=== PATIENT | male | born 1955 | race Caucasian/White ===

== ENCOUNTER → 2021-05-24 | Outpatient (REF) | payer BC ==
[2021-05-24 12:59] LABS: BACTERIA, URINE AUTO 1+ (NEGATIVE); MUCUS, URINE SMALL (NEGATIVE); RBC, URINE AUTO 39 /HPF (0-3); RENAL EPITHELIAL CELLS 1 /HPF; SQUAMOUS EPITHELIAL CELL UR AU 0 /HPF (0-6); WBC, URINE AUTO 13 /HPF (0-3)
== END ==
LOC: M LAB REF 12:25
PROVIDERS: ATTEND Internal Medicine
DX: R31.9 Hematuria, unspecified (principal)

== ENCOUNTER → 2021-06-14 | Outpatient (REF) | payer BC ==
[2021-06-14 13:01] LABS: BACTERIA, URINE AUTO NEGATIVE (NEGATIVE); MUCUS, URINE SMALL (NEGATIVE); RBC, URINE AUTO 119 /HPF (0-3); SQUAMOUS EPITHELIAL CELL UR AU 0 /HPF (0-6); WBC, URINE AUTO 18 /HPF (0-3)
== END ==
LOC: M LAB REF 12:26
PROVIDERS: ATTEND Internal Medicine
DX: R31.9 Hematuria, unspecified (principal); R30.0 Dysuria

== ENCOUNTER → 2021-06-21 | Outpatient (CLI) | payer OTHER ==
[~2021-06-21] MED LIST: ISOVUE-370 76% 100ML VIAL As Ordered ONE
== END ==
LOC: M RAD 14:01
PROVIDERS: ATTEND Internal Medicine
DX: R31.9 Hematuria, unspecified (principal)

== ENCOUNTER → 2021-06-25 | Outpatient (CLI) | payer OTHER, MEDICARE | LOC: M PLALAB 10:49 | PROVIDERS: ATTEND Nurse Practitioner Women's Health | DX: C61 Malignant neoplasm of prostate (principal) ==

== ENCOUNTER → 2021-07-17 | Outpatient (CLI) | payer OTHER | LOC: M RAD 10:42 | PROVIDERS: ATTEND Internal Medicine | DX: Z87.891 Personal history of nicotine dependence (principal) ==

== ENCOUNTER → 2021-08-13 | Outpatient (REF) | payer OTHER ==
[~2021-08-13] MED LIST changes: +ATOR1TAB19; +CITA20TA7; +GINK1CAP PO; -ISOVUE-370 76% 100ML VIAL As Ordered ONE; +LISI10TA22; +MULTTAB77 PO; +TADA5TAB; +TAMS1CAP17
[2021-08-13 17:10] LABS: INR 1.11; PROTHROMBIN TIME 14.7 SECONDS (12.7-14.5)
== END ==
LOC: M LAB REF 16:40
PROVIDERS: ATTEND Internal Medicine
DX: Z01.810 Encounter for preprocedural cardiovascular examination (principal)

== ENCOUNTER → 2021-08-14 | Outpatient (CLI) | payer MEDICARE, OTHER, SELFPAY | LOC: M LABSMTC 09:59 | PROVIDERS: ATTEND Anesthesiology | DX: Z01.812 Encounter for preprocedural laboratory examination (principal) ==

== ENCOUNTER 2021-08-19 11:10 | Day surgery (SDC) | payer OTHER, SELFPAY ==
[~2021-08-19] VITALS: Ht 175.3 cm; Wt 77.0 kg
[~2021-08-19 11:10] MED LIST changes: +CIPROFLOXACIN 400 MG in IV 1 EA IV ONE
[2021-08-19] MEDS ORDERED: LR 1,000 ML IV SCH ×2 (11:20→14:40)
[2021-08-19] MEDS ORDERED: fentaNYL 100 MCG/2 ML INJECTION As Ordered ONE ×2 (12:39→13:40)
[2021-08-19] MEDS ORDERED: MIDAZOLAM INJ 2MG/2ML VIAL (J2250 PER 1MG) As Ordered ONE (12:59)
[2021-08-19] MEDS ORDERED: propofoL 200 MG/20 ML VIAL As Ordered ONE (13:00)
[2021-08-19] MEDS ORDERED: ROCURONIUM BROMIDE 50 MG/5 ML VIAL As Ordered ONE (13:00)
[2021-08-19] MEDS ORDERED: ONDANSETRON 4MG 2ML VIAL As Ordered ONE ×2 (13:37→13:41)
[2021-08-19] MEDS ORDERED: SUGAMMADEX SODIUM 500 MG/5 ML VIAL (BRIDION) As Ordered ONE (13:37)
[2021-08-19] MEDS ORDERED: dexameTHASONE 4 MG/ML 1ML VIAL (J1100 PER 1MG) As Ordered ONE ×2 (13:37→13:51)
[2021-08-19] MEDS ORDERED: ACETAMINOPHEN 1000MG 100ML IV BTL (OFIRMEV) (J0131 PER 10MG) As Ordered ONE (13:40)
[2021-08-19] MEDS ORDERED: ePHEDrine SULFATE 25 MG/5 ML(5MG/ML) SYRINGE As Ordered ONE (14:02)
[2021-08-19] MEDS ORDERED: PHENYLephrine 500MCG 5ML (100MCG/ML) SYRINGE As Ordered ONE (14:07)
[2021-08-19] MEDS ORDERED: KETOROLAC 60MG 2ML VIAL As Ordered ONE (14:14)
[2021-08-19] MEDS ORDERED: HYDR-3713 PO (14:22)
[2021-08-19] MEDS ORDERED: PYRI1TAB5 PO (14:22)
[2021-08-19] MEDS ORDERED: OXYB5TAB10 PO (14:22)
[2021-08-19] MEDS ORDERED: BACT800T5 PO (14:22)
[2021-08-19] MEDS ORDERED: fentaNYL 100 MCG/2 ML INJECTION IV PRN (14:40)
[2021-08-19] MEDS ORDERED: PERCOCET 5MG/325MG TAB PO PRN (14:40)
[2021-08-19] MEDS ORDERED: ONDANSETRON 4MG 2ML VIAL IV PRN (14:40)
[2021-08-19] MEDS: LABETALOL 100MG/20ML VIAL IV PRN ×3 (14:50→15:00)
[2021-08-19 15:15] VITALS: BP 174/94
== END 2021-08-19 15:45 | disposition home or self-care (01) ==
LOC: M SDC 11:10
PROVIDERS: ATTEND Urology
DX: C67.9 Malignant neoplasm of bladder, unspecified (principal); N40.0 Benign prostatic hyperplasia without lower urinary tract symptoms
CPT/HCPCS: 52240; 88307; J0131; J0744; J1100; J1885; J2250; J2370; J2405; J3010

== ENCOUNTER → 2021-09-17 | Outpatient (CLI) | payer MEDICARE, OTHER ==
[~2021-09-17] MED LIST changes: +BACT800T5 PO; -CIPROFLOXACIN 400 MG in IV 1 EA IV ONE; +GASTROGRAFIN SOLUTION 30ML (Q9963) As Ordered ONE; +HYDR-3713 PO; +ISOVUE-370 76% 100ML VIAL As Ordered ONE; +OXYB5TAB10 PO; +PYRI1TAB5 PO
== END ==
LOC: M RAD 11:28
PROVIDERS: ATTEND Internal Medicine Hematology & Oncology
DX: C67.9 Malignant neoplasm of bladder, unspecified (principal)

== ENCOUNTER → 2021-10-02 | Outpatient (CLI) | payer OTHER ==
[~2021-10-02] MED LIST changes: +FLOM0.4C39 PO; -GASTROGRAFIN SOLUTION 30ML (Q9963) As Ordered ONE; -ISOVUE-370 76% 100ML VIAL As Ordered ONE
== END ==
LOC: M LABSMTC 10:30
PROVIDERS: ATTEND Anesthesiology
DX: Z11.52 Encounter for screening for COVID-19 (principal)

== ENCOUNTER → 2021-10-07 | Outpatient (CLI) | payer OTHER ==
[~2021-10-07] MED LIST changes: +LIDOCAINE 1% MDV 20ML VIAL As Ordered ONE; +MIDAZOLAM INJ 2MG/2ML VIAL (J2250 PER 1MG) As Ordered ONE; +NS 1,000 ML IV SCH; +ceFAZolin 2 GM/D5W 50 ML IV BAG (J0690 PER 500MG) As Ordered ONE; +ceFAZolin SOD 2 GM in IV 1 EA IV ONE; +diphenhydrAMINE 50MG/ML VIAL (J1200) As Ordered ONE; +fentaNYL 100 MCG/2 ML INJECTION As Ordered ONE
[2021-10-07 12:00] VITALS: BP 140/79
== END ==
LOC: M IRPRO 08:46
PROVIDERS: ATTEND Internal Medicine Hematology & Oncology
DX: C67.9 Malignant neoplasm of bladder, unspecified (principal); Z79.899 Other long term (current) drug therapy
CPT/HCPCS: 36561; 99152; C1769; C1788; C1894; J0690; J1200; J1642; J1644; J2250; J3010

== ENCOUNTER → 2021-10-08 | Outpatient (POV) | payer OTHER ==
[~2021-10-08] VITALS: Ht 172.7 cm; Wt 77.3 kg
[~2021-10-08] MED LIST changes: -LIDOCAINE 1% MDV 20ML VIAL As Ordered ONE; -MIDAZOLAM INJ 2MG/2ML VIAL (J2250 PER 1MG) As Ordered ONE; -NS 1,000 ML IV SCH; -ceFAZolin 2 GM/D5W 50 ML IV BAG (J0690 PER 500MG) As Ordered ONE; -ceFAZolin SOD 2 GM in IV 1 EA IV ONE; -diphenhydrAMINE 50MG/ML VIAL (J1200) As Ordered ONE; -fentaNYL 100 MCG/2 ML INJECTION As Ordered ONE
[2021-10-08 14:30] VITALS: BP 164/78
== END ==
LOC: M IRPOV 14:20
PROVIDERS: ATTEND Radiology Diagnostic Radiology
DX: N13.4 Hydroureter (principal); C67.9 Malignant neoplasm of bladder, unspecified; F17.210 Nicotine dependence, cigarettes, uncomplicated; I10 Essential (primary) hypertension; R31.9 Hematuria, unspecified; N28.9 Disorder of kidney and ureter, unspecified; Z79.899 Other long term (current) drug therapy

== ENCOUNTER → 2021-10-27 | Outpatient (CLI) | payer OTHER ==
[~2021-10-27] MED LIST changes: +OXYB10TA23; +VITA-243 PO
== END ==
LOC: M LABSMTC 11:39
PROVIDERS: ATTEND Anesthesiology
DX: Z01.818 Encounter for other preprocedural examination (principal); Z11.52 Encounter for screening for COVID-19

== ENCOUNTER → 2021-10-31 | Outpatient (CLI) | payer OTHER ==
[~2021-10-31] MED LIST changes: +ISOVUE-300 61% 50ML VIAL As Ordered ONE; +LIDOCAINE 1% MDV 20ML VIAL As Ordered ONE; +MIDAZOLAM INJ 2MG/2ML VIAL (J2250 PER 1MG) As Ordered ONE; +NS 1,000 ML IV SCH; +ONDA-84 PO; +PERCOCET 5MG/325MG TAB As Ordered ONE; +PERCOCET 5MG/325MG TAB PO PRN; +PROC10TA5 PO; +ceFAZolin 2 GM/D5W 50 ML IV BAG (J0690 PER 500MG) As Ordered ONE; +ceFAZolin SOD 2 GM in D5W MINI-BAG PLUS 50 ML IV ONE; +ceFAZolin SOD 2 GM in IV 1 EA IV ONE; +diphenhydrAMINE 50MG/ML VIAL (J1200) As Ordered ONE; +fentaNYL 100 MCG/2 ML INJECTION As Ordered ONE
[2021-10-31 15:55] VITALS: BP 176/84
== END ==
LOC: M IRPRO 11:56
PROVIDERS: ATTEND Radiology Diagnostic Radiology
DX: C67.9 Malignant neoplasm of bladder, unspecified (principal); N13.1 Hydronephrosis with ureteral stricture, not elsewhere classified; Z79.899 Other long term (current) drug therapy
CPT/HCPCS: 50432; 99152; 99153; C1729; C1769; C1894; J0690; J1200; J2250; J3010; Q9967

== ENCOUNTER → 2021-11-19 | Outpatient (POV) | payer OTHER ==
[~2021-11-19] VITALS: Ht 172.7 cm; Wt 79.9 kg
[~2021-11-19] MED LIST changes: -ISOVUE-300 61% 50ML VIAL As Ordered ONE; +LIDO1CRE42 TOP; -LIDOCAINE 1% MDV 20ML VIAL As Ordered ONE; -MIDAZOLAM INJ 2MG/2ML VIAL (J2250 PER 1MG) As Ordered ONE; -NS 1,000 ML IV SCH; -PERCOCET 5MG/325MG TAB As Ordered ONE; -PERCOCET 5MG/325MG TAB PO PRN; -ceFAZolin 2 GM/D5W 50 ML IV BAG (J0690 PER 500MG) As Ordered ONE; -ceFAZolin SOD 2 GM in D5W MINI-BAG PLUS 50 ML IV ONE; -ceFAZolin SOD 2 GM in IV 1 EA IV ONE; -diphenhydrAMINE 50MG/ML VIAL (J1200) As Ordered ONE; -fentaNYL 100 MCG/2 ML INJECTION As Ordered ONE
[2021-11-19 14:45] VITALS: BP 176/96
== END ==
LOC: M IRPOV 14:36
PROVIDERS: ATTEND Radiology Diagnostic Radiology
DX: Z48.816 Encounter for surgical aftercare following surgery on the genitourinary system (principal)

== ENCOUNTER 2022-01-08 12:06 | Inpatient (IN) | payer MEDICARE, OTHER ==
[~2022-01-08 12:06] MED LIST changes: -ATOR1TAB19; +ATOR1TAB19 PO; -CITA20TA7; +CITA20TA7 PO; -LISI10TA22; +LISI10TA22 PO
[2022-01-08] MEDS ORDERED: NS 1,000 ML IV ONE ×2 (12:30→15:50)
[2022-01-08] MEDS ORDERED: PIPERACILLIN/TAZOBACTAM SOD 4.5 GM in D5W MINI-BAG PLUS 50 ML IV ONE (12:35)
[2022-01-08 13:03] LABS: INR 1.75; PROTHROMBIN TIME 20.7 SECONDS (12.5-14.5)
[2022-01-08 13:04] LABS: PARTIAL THROMBOPLASTIN TIME 38.3 SECONDS (24.8-34.2)
[2022-01-08] MEDS ORDERED: HOME MED LIST COMPLETE! XX SCH (13:05)
[2022-01-08] MEDS ORDERED: VITMTA PO (13:05)
[2022-01-08] MEDS ORDERED: DOCU100C16 PO (13:05)
[2022-01-08] MEDS ORDERED: DEXTROSE 50% 50 ML SYRINGE IV STA ×2 (13:12→23:01)
[2022-01-08] MEDS ORDERED: CALCIUM GLUCONATE 1,000 MG in D5W MINI-BAG PLUS 100 ML IV ONE (13:15)
[2022-01-08] MEDS ORDERED: HumuLIN R (REGULAR) INSULIN (NovoLIN R) **100U/ML** PER UNIT IV ONE (13:15)
[2022-01-08] MEDS ORDERED: cefTRIAXone SOD 2 GM in D5W MINI-BAG PLUS 50 ML IV ONE (13:15)
[2022-01-08 13:42] LABS: FREE T4 0.94 NG/DL (0.89-1.76); THYROID STIMULATING HORMONE 1.901 uIU/ML (0.55-4.78)
[2022-01-08 14:25] LABS: APPEARANCE, URINE MANUAL TURBID (CLEAR)
[2022-01-08 14:26] LABS: COLOR, URINE MANUAL LT YELLOW (YELLOW)
[2022-01-08 14:29] LABS: BILIRUBIN, URINE MANUAL NEGATIVE (NEGATIVE); BLOOD URINE MANUAL POSITIVE (NEGATIVE); GLUCOSE, URINE (UA) MANUAL NEGATIVE (NEGATIVE); KETONE, URINE MANUAL 1+ mg/dL (NEGATIVE); LEUKOCYTE ESTERASE, URINE MAN POSITIVE (NEGATIVE); NITRITE, URINE MANUAL NEGATIVE (NEGATIVE); PROTEIN, URINE MANUAL 3+ mg/dL (NEGATIVE); UROBILINOGEN, URINE MANUAL NORMAL (NORMAL)
[2022-01-08 14:41] LABS: BACTERIA, URINE LARGE AMOUNT; HYALINE CAST, URINE NONE SEEN /lpf (0-1); SQUAMOUS EPITHELIAL CELL URINE NONE SEEN /hpf (SMALL AMT); WBC, URINE TNTC /hpf (0-3)
[2022-01-08] MEDS ORDERED: PATIROMER SORBITEX CALCIUM 8.4 GM POWDER PACKET (VELTASSA) PO ONE (15:05)
[2022-01-08] MEDS ORDERED: ONDANSETRON 4MG 2ML VIAL IV PRN (16:25)
[2022-01-08] MEDS ORDERED: NS 1,000 ML IV SCH (16:25)
[2022-01-08] MEDS: SODIUM BICARBONATE 150 MEQ in D5W 1,000 ML IV SCH (17:45)
[2022-01-08 18:03] LABS: CREATININE FOR GFR 10.56 MG/DL (0.70-1.30); GLOMERULAR FILTRATION RATE 5.2 (>49); POTASSIUM SERUM 6.2 MMOL/L (3.5-5.1)
[2022-01-08] MEDS ORDERED: CEFEPIME HCL 1 GM in D5W MINI-BAG PLUS 50 ML IV SCH (21:00)
[2022-01-08 22:59] LABS: CALCIUM LEVEL 9.2 MG/DL (8.3-10.6); CREATININE FOR GFR 10.6 MG/DL (0.70-1.30); GLOMERULAR FILTRATION RATE 5.2 (>49); POTASSIUM SERUM 6.6 MMOL/L (3.5-5.1)
[2022-01-08] MEDS ORDERED: HumuLIN R (REGULAR) INSULIN (NovoLIN R) **100U/ML** PER UNIT IV STA (23:01)
[2022-01-09 04:57] VITALS: BP 131/66
[2022-01-09 05:49] LABS: HEMATOCRIT 23.6 % (42.0-52.0); HEMOGLOBIN 7.5 g/dl (13.5-17.5); MEAN CORPUSCULAR HEMOGLOBIN 28.8 pg (27.0-33.0); MEAN CORPUSCULAR HGB CONC 31.8 g/dl (32.0-36.5); MEAN CORPUSCULAR VOLUME 90.8 fl (80.0-96.0); PLATELET COUNT, AUTOMATED 444 10^3/uL (150-450); WHITE BLOOD COUNT 20.8 10^3/uL (4.0-10.0)
[2022-01-09] MEDS: SODIUM BICARBONATE 150 MEQ in D5W 1,000 ML IV SCH ×3 (06:35→19:37)
[2022-01-09 07:34] LABS: ALBUMIN 1.8 G/DL (3.2-5.2); CALCIUM LEVEL 8.8 MG/DL (8.3-10.6); CREATININE FOR GFR 10.27 MG/DL (0.70-1.30); GLOMERULAR FILTRATION RATE 5.4 (>49); PHOSPHORUS LEVEL 6.6 MG/DL (2.4-5.1); POTASSIUM SERUM 5.9 MMOL/L (3.5-5.1)
[2022-01-09 07:48] LABS: ANISOCYTOSIS 1+; LYMPHOCYTES 8 % (16-44); METAMYELOCYTES 1 % (0-0); MONOCYTES 7 % (0-5); NEUTROPHILS 82 % (28-66); PLATELET ESTIMATE INCREASED (NORMAL)
[2022-01-09 07:49] LABS: OVALOCYTES 1+
[2022-01-09 08:00] VITALS: BP 131/66
[2022-01-09] MEDS ORDERED: SODIUM CHLORIDE 0.9% 1000ML IV PRN (09:25)
[2022-01-09] MEDS ORDERED: HEPARIN 1,000UNITS/ML 10ML VIAL (FOR RADIOLOGY & DIALYSIS ONLY) IV PRN (09:25)
[2022-01-09] MEDS ORDERED: HEPARIN 1,000UNITS/ML 10ML VIAL (FOR RADIOLOGY & DIALYSIS ONLY) XX SCH (09:25)
[2022-01-09 12:00] VITALS: BP 133/78
[2022-01-09 12:47] LABS: HEPATITIS B CORE ANTIBODY IGM NEGATIVE (NEGATIVE); HEPATITIS B SURFACE ANTIBODY NEGATIVE (POSITIVE); HEPATITIS B SURFACE ANTIGEN NEGATIVE (NEGATIVE); HEPATITIS C VIRUS ABY INDEX 0.3 INDEX (<0.8)
[2022-01-09 14:00] VITALS: BP 140/66
[2022-01-09] MEDS ORDERED: LIDOCAINE 1% MDV 20ML VIAL As Ordered ONE (15:11)
[2022-01-09] MEDS ORDERED: HEPARIN 1,000UNITS/ML 10ML VIAL (FOR RADIOLOGY & DIALYSIS ONLY) As Ordered ONE (15:11)
[2022-01-09] MEDS ORDERED: CEFEPIME HCL 1 GM in D5W MINI-BAG PLUS 50 ML IV SCH (16:00)
[2022-01-09] MEDS ORDERED: fentaNYL 100 MCG/2 ML INJECTION As Ordered ONE (16:28)
[2022-01-09] MEDS ORDERED: MIDAZOLAM INJ 2MG/2ML VIAL (J2250 PER 1MG) As Ordered ONE (16:28)
[2022-01-09 20:00] VITALS: BP 138/73
[2022-01-09] MEDS: CEFEPIME HCL 1 GM in D5W MINI-BAG PLUS 50 ML IV SCH (21:41)
[2022-01-10] VITALS (14 sets, daily range): BP systolic 122–150; BP diastolic 64–82
[2022-01-10] MEDS ORDERED: SODIUM CHLORIDE 0.9% 1000ML IV PRN (06:00)
[2022-01-10] MEDS ORDERED: HEPARIN 1,000UNITS/ML 10ML VIAL (FOR RADIOLOGY & DIALYSIS ONLY) IV PRN (06:00)
[2022-01-10] MEDS ORDERED: HEPARIN 1,000UNITS/ML 10ML VIAL (FOR RADIOLOGY & DIALYSIS ONLY) XX SCH (06:00)
[2022-01-10 06:10] LABS: MEAN CORPUSCULAR HEMOGLOBIN 29.1 pg (27.0-33.0); MEAN CORPUSCULAR HGB CONC 32.7 g/dl (32.0-36.5); MEAN CORPUSCULAR VOLUME 88.9 fl (80.0-96.0); PLATELET COUNT, AUTOMATED 381 10^3/uL (150-450); RED BLOOD COUNT 2.34 10^6/uL (4.30-6.10)
[2022-01-10 06:25] LABS: INR 1.84; PROTHROMBIN TIME 21.6 SECONDS (12.5-14.5)
[2022-01-10 06:26] LABS: PARTIAL THROMBOPLASTIN TIME 37.3 SECONDS (24.8-34.2)
[2022-01-10] MEDS: SODIUM BICARBONATE 150 MEQ in D5W 1,000 ML IV SCH (06:44)
[2022-01-10 07:42] LABS: ALBUMIN 1.6 G/DL (3.2-5.2); CALCIUM LEVEL 7.2 MG/DL (8.3-10.6); CREATININE FOR GFR 7.41 MG/DL (0.70-1.30); GLOMERULAR FILTRATION RATE 7.9 (>49); PHOSPHORUS LEVEL 6.3 MG/DL (2.4-5.1); POTASSIUM SERUM 4.1 MMOL/L (3.5-5.1)
[2022-01-10 08:02] LABS: HEMOGLOBIN 6.8 g/dl (13.5-17.5)
[2022-01-10 08:03] LABS: HEMATOCRIT 20.8 % (42.0-52.0)
[2022-01-10 08:14] LABS: ANISOCYTOSIS 1+; ATYPICAL LYMPH 2 % (0-5); LYMPHOCYTES 8 % (16-44); METAMYELOCYTES 1 % (0-0); MONOCYTES 3 % (0-5); NEUTROPHILS 84 % (28-66); PLATELET ESTIMATE NORMAL (NORMAL)
[2022-01-10 16:43] LABS: BILIRUBIN,DIRECT 0.1 MG/DL (<0.4); BILIRUBIN,TOTAL 0.2 MG/DL (0.3-1.2); TOTAL PROTEIN 5.7 G/DL (5.7-8.2)
[2022-01-10] MEDS: CEFEPIME HCL 1 GM in D5W MINI-BAG PLUS 50 ML IV SCH (21:09)
[2022-01-11 04:18] VITALS: BP 134/66
[2022-01-11 06:05] LABS: HEMATOCRIT 29.1 % (42.0-52.0); MEAN CORPUSCULAR HEMOGLOBIN 29.9 pg (27.0-33.0); MEAN CORPUSCULAR HGB CONC 32.6 g/dl (32.0-36.5); MEAN CORPUSCULAR VOLUME 91.5 fl (80.0-96.0); PLATELET COUNT, AUTOMATED 314 10^3/uL (150-450); RED BLOOD COUNT 3.18 10^6/uL (4.30-6.10)
[2022-01-11 06:07] LABS: HEMOGLOBIN 9.5 g/dl (13.5-17.5)
[2022-01-11 06:28] LABS: EOSINOPHILS 1 % (0-3); LYMPHOCYTES 7 % (16-44); MONOCYTES 1 % (0-5); MYELOCYTES 1 % (0-0); NEUTROPHILS 86 % (28-66)
[2022-01-11 06:29] LABS: ANISOCYTOSIS 1+; PLATELET CLUMPS SMALL AMT; PLATELET ESTIMATE NORMAL (NORMAL)
[2022-01-11 06:31] LABS: ALBUMIN 1.7 G/DL (3.2-5.2); CALCIUM LEVEL 7.4 MG/DL (8.3-10.6); CREATININE FOR GFR 5.33 MG/DL (0.70-1.30); GLOMERULAR FILTRATION RATE 11.5 (>49); PHOSPHORUS LEVEL 5.7 MG/DL (2.4-5.1); POTASSIUM SERUM 3.9 MMOL/L (3.5-5.1)
[2022-01-11 08:46] VITALS: BP 120/66
[2022-01-11 14:40] VITALS: BP 148/79
[2022-01-11 18:18] VITALS: BP 145/80
[2022-01-11 22:00] VITALS: BP 130/70
[2022-01-11] MEDS: CEFEPIME HCL 1 GM in D5W MINI-BAG PLUS 50 ML IV SCH (22:07)
[2022-01-12 06:00] VITALS: BP 145/85
[2022-01-12 07:26] LABS: HEMATOCRIT 28.6 % (42.0-52.0); HEMOGLOBIN 9.2 g/dl (13.5-17.5); MEAN CORPUSCULAR HEMOGLOBIN 29.4 pg (27.0-33.0); MEAN CORPUSCULAR HGB CONC 32.2 g/dl (32.0-36.5); MEAN CORPUSCULAR VOLUME 91.4 fl (80.0-96.0); PLATELET COUNT, AUTOMATED 289 10^3/uL (150-450); RED BLOOD COUNT 3.13 10^6/uL (4.30-6.10); WHITE BLOOD COUNT 17.4 10^3/uL (4.0-10.0)
[2022-01-12 07:51] LABS: EOSINOPHILS 2 % (0-3); LYMPHOCYTES 3 % (16-44); METAMYELOCYTES 2 % (0-0); MONOCYTES 6 % (0-5); NEUTROPHILS 87 % (28-66)
[2022-01-12 07:52] LABS: ANISOCYTOSIS 1+; PLATELET CLUMPS SMALL AMT; PLATELET ESTIMATE NORMAL (NORMAL)
[2022-01-12 07:55] LABS: POLYCHROMASIA 1+; SCHISTOCYTES 1+
[2022-01-12 08:03] LABS: ALBUMIN 1.6 G/DL (3.2-5.2); CREATININE FOR GFR 6.24 MG/DL (0.70-1.30); GLOMERULAR FILTRATION RATE 9.6 (>49); PHOSPHORUS LEVEL 5.6 MG/DL (2.4-5.1); POTASSIUM SERUM 3.9 MMOL/L (3.5-5.1)
[2022-01-12] MEDS ORDERED: HEPARIN 1,000UNITS/ML 10ML VIAL (FOR RADIOLOGY & DIALYSIS ONLY) XX SCH (08:05)
[2022-01-12] MEDS ORDERED: HEPARIN 1,000UNITS/ML 10ML VIAL (FOR RADIOLOGY & DIALYSIS ONLY) IV PRN (08:05)
[2022-01-12] MEDS ORDERED: SODIUM CHLORIDE 0.9% 1000ML IV PRN (08:05)
[2022-01-12 16:44] VITALS: BP 150/86
[2022-01-12] MEDS: CEFEPIME HCL 1 GM in D5W MINI-BAG PLUS 50 ML IV SCH (20:46)
[2022-01-12 22:00] VITALS: BP 143/75
[2022-01-12] MEDS: ACETAMINOPHEN TAB 650MG DOSE (2X325MG) PO PRN (23:43)
[2022-01-13 06:00] VITALS: BP 159/82
[2022-01-13 06:09] LABS: HEMOGLOBIN 9.4 g/dl (13.5-17.5); MEAN CORPUSCULAR HEMOGLOBIN 29.6 pg (27.0-33.0); MEAN CORPUSCULAR HGB CONC 31.3 g/dl (32.0-36.5); MEAN CORPUSCULAR VOLUME 94.3 fl (80.0-96.0); PLATELET COUNT, AUTOMATED 288 10^3/uL (150-450); RED BLOOD COUNT 3.18 10^6/uL (4.30-6.10); WHITE BLOOD COUNT 14.2 10^3/uL (4.0-10.0)
[2022-01-13 06:44] LABS: ANISOCYTOSIS 1+; ATYPICAL LYMPH 6 % (0-5); BASOPHILS 1 % (0-1); EOSINOPHILS 2 % (0-3); LYMPHOCYTES 3 % (16-44); METAMYELOCYTES 1 % (0-0); MONOCYTES 6 % (0-5); NEUTROPHILS 79 % (28-66); PLATELET ESTIMATE NORMAL (NORMAL)
[2022-01-13 06:57] LABS: ALBUMIN 1.7 G/DL (3.2-5.2); CALCIUM LEVEL 7.7 MG/DL (8.3-10.6); CREATININE FOR GFR 4.01 MG/DL (0.70-1.30); PHOSPHORUS LEVEL 4.2 MG/DL (2.4-5.1); POTASSIUM SERUM 4.1 MMOL/L (3.5-5.1)
[2022-01-13 14:00] VITALS: BP 135/78
[2022-01-13] MEDS: AMPICILLIN SOD 2 GM in D5W MINI-BAG PLUS 100 ML IV SCH (17:31)
[2022-01-13 20:55] VITALS: BP 133/73
[2022-01-13] MEDS: CEFEPIME HCL 1 GM in D5W MINI-BAG PLUS 50 ML IV SCH (21:02)
[2022-01-14] MEDS: AMPICILLIN SOD 2 GM in D5W MINI-BAG PLUS 100 ML IV SCH ×2 (04:17→17:25)
[2022-01-14 05:20] VITALS: BP 136/71
[2022-01-14 06:32] LABS: HEMATOCRIT 28.8 % (42.0-52.0); HEMOGLOBIN 8.7 g/dl (13.5-17.5); MEAN CORPUSCULAR HEMOGLOBIN 28.8 pg (27.0-33.0); MEAN CORPUSCULAR HGB CONC 30.2 g/dl (32.0-36.5); MEAN CORPUSCULAR VOLUME 95.4 fl (80.0-96.0); PLATELET COUNT, AUTOMATED 299 10^3/uL (150-450); RED BLOOD COUNT 3.02 10^6/uL (4.30-6.10); WHITE BLOOD COUNT 14.2 10^3/uL (4.0-10.0)
[2022-01-14] MEDS ORDERED: HEPARIN 1,000UNITS/ML 10ML VIAL (FOR RADIOLOGY & DIALYSIS ONLY) As Ordered ONE (06:49)
[2022-01-14] MEDS ORDERED: LIDOCAINE 1% MDV 20ML VIAL As Ordered ONE (06:50)
[2022-01-14 07:01] LABS: ALBUMIN 1.6 G/DL (3.2-5.2); CALCIUM LEVEL 7.3 MG/DL (8.3-10.6); CREATININE FOR GFR 5.18 MG/DL (0.70-1.30); GLOMERULAR FILTRATION RATE 11.9 (>49); PHOSPHORUS LEVEL 4.1 MG/DL (2.4-5.1); POTASSIUM SERUM 4.1 MMOL/L (3.5-5.1)
[2022-01-14] MEDS ORDERED: fentaNYL 100 MCG/2 ML INJECTION As Ordered ONE (07:32)
[2022-01-14] MEDS ORDERED: MIDAZOLAM INJ 2MG/2ML VIAL (J2250 PER 1MG) As Ordered ONE (07:32)
[2022-01-14 07:36] LABS: INR 1.71; PROTHROMBIN TIME 20.4 SECONDS (12.5-14.5)
[2022-01-14] MEDS ORDERED: HEPARIN 1,000UNITS/ML 10ML VIAL (FOR RADIOLOGY & DIALYSIS ONLY) IV PRN (07:40)
[2022-01-14 07:41] LABS: ANISOCYTOSIS 1+; BASOPHILS 1 % (0-1); EOSINOPHILS 2 % (0-3); METAMYELOCYTES 2 % (0-0); MONOCYTES 10 % (0-5); NEUTROPHILS 76 % (28-66); PLATELET ESTIMATE NORMAL (NORMAL)
[2022-01-14] MEDS ORDERED: LIDOCAINE W/EPINEPHRINE 1% 20ML VIAL As Ordered ONE (07:42)
[2022-01-14 07:44] LABS: ATYPICAL LYMPH 1 % (0-5); LYMPHOCYTES 7 % (16-44)
[2022-01-14] MEDS ORDERED: SODIUM CHLORIDE 0.9% 1000ML IV PRN (08:05)
[2022-01-14] MEDS ORDERED: HEPARIN 1,000UNITS/ML 10ML VIAL (FOR RADIOLOGY & DIALYSIS ONLY) XX SCH (08:05)
[2022-01-14] MEDS: ACETAMINOPHEN TAB 650MG DOSE (2X325MG) PO PRN (13:25)
[2022-01-14 14:00] VITALS: BP 155/87
[2022-01-14] MEDS ORDERED: DOCUSATE SODIUM 100MG CAPSULE PO PRN (19:25)
[2022-01-14 22:00] VITALS: BP 152/87
[2022-01-14] MEDS ORDERED: CEFEPIME HCL 1 GM in D5W MINI-BAG PLUS 50 ML IV ONE (22:00)
[2022-01-15 04:30] VITALS: BP 152/86
[2022-01-15] MEDS ORDERED: HEPARIN SOD (PORCINE) 5000UNITS/ML 1ML VIAL/SYRINGE SQ SCH (06:00)
[2022-01-15] MEDS ORDERED: LevoFLOXacin 500 MG TABLET PO SCH (06:00)
[2022-01-15 06:07] LABS: BASO # 0.1 10^3/uL (0.0-0.2); BASO % 0.6 % (0.0-1.0); EOS # 0.3 10^3/uL (0.0-0.5); EOS % 1.7 % (0.0-3.0); HEMATOCRIT 32.1 % (42.0-52.0); HEMOGLOBIN 9.7 g/dl (13.5-17.5); LYMPH # 2.2 10^3/uL (1.5-5.0); LYMPH % 13.7 % (24.0-44.0); MEAN CORPUSCULAR HEMOGLOBIN 28.8 pg (27.0-33.0); MEAN CORPUSCULAR HGB CONC 30.2 g/dl (32.0-36.5); MEAN CORPUSCULAR VOLUME 95.3 fl (80.0-96.0); MONO % 9.6 % (2.0-8.0); NEUTROPHILS # 11.4 10^3/uL (1.5-8.5); PLATELET COUNT, AUTOMATED 335 10^3/uL (150-450); RED BLOOD COUNT 3.37 10^6/uL (4.30-6.10); WHITE BLOOD COUNT 16.2 10^3/uL (4.0-10.0)
[2022-01-15 06:32] LABS: ALBUMIN 1.8 G/DL (3.2-5.2); BILIRUBIN,DIRECT 0.1 MG/DL (<0.4); BILIRUBIN,TOTAL 0.3 MG/DL (0.3-1.2); CALCIUM LEVEL 8.4 MG/DL (8.3-10.6); CREATININE FOR GFR 3.51 MG/DL (0.70-1.30); GLOMERULAR FILTRATION RATE 18.7 (>49); PHOSPHORUS LEVEL 3.1 MG/DL (2.4-5.1); TOTAL PROTEIN 6.6 G/DL (5.7-8.2)
[2022-01-15 07:18] LABS: MONO # 1.6 10^3/uL (0.0-0.8)
[2022-01-15] MEDS ORDERED: ATORVASTATIN 10 MG TAB PO SCH (09:00)
[2022-01-15] MEDS ORDERED: CitaloPRAM (CeleXA) 20 MG TAB PO SCH (09:00)
[2022-01-15] MEDS ORDERED: ASCORBIC ACID 500 MG TAB PO SCH (09:00)
[2022-01-15] MEDS ORDERED: MULTIVITAMINS/MINERALS THERAP 1 TAB PO SCH (09:00)
[2022-01-15] MEDS ORDERED: LEVO1TAB39 PO (10:33)
== END 2022-01-15 14:17 | disposition home or self-care (01) | DRG 674 ==
LOC: M ED 12:06 → M ED INP 15:32 → ENRESERV 01-09 02:30 → M PCU 01-09 04:56 → M MSPAV 01-11 14:34
PROVIDERS: ADMIT Internal Medicine Nephrology; ATTEND Student in an Organized Health Care Education/Training Program
PROC: 02H633Z Insertion of Infusion Device into Right Atrium, Percutaneous Approach (ICD-10-PCS; 2022-01-09)
PROC: 5A1D70Z Performance of Urinary Filtration, Intermittent, Less than 6 Hours Per Day (ICD-10-PCS; 2022-01-09)
PROC: 30233N1 Transfusion of Nonautologous Red Blood Cells into Peripheral Vein, Percutaneous Approach (ICD-10-PCS; 2022-01-10)
PROC: 05PY33Z Removal of Infusion Device from Upper Vein, Percutaneous Approach (ICD-10-PCS; 2022-01-14)
PROC: 02H633Z Insertion of Infusion Device into Right Atrium, Percutaneous Approach (ICD-10-PCS; 2022-01-14)
PROC: 0JH63XZ Insertion of Tunneled Vascular Access Device into Chest Subcutaneous Tissue and Fascia, Percutaneous Approach (ICD-10-PCS; principal; 2022-01-14 07:00)
DX: N17.0 Acute kidney failure with tubular necrosis (principal); E87.20 Acidosis, unspecified; D68.9 Coagulation defect, unspecified; E87.1 Hypo-osmolality and hyponatremia; I12.0 Hypertensive chronic kidney disease with stage 5 chronic kidney disease or end stage renal disease; N99.531 Infection of continent stoma of urinary tract; N18.6 End stage renal disease; N10 Acute pyelonephritis; N13.30 Unspecified hydronephrosis; C67.5 Malignant neoplasm of bladder neck; E78.5 Hyperlipidemia, unspecified; N40.1 Benign prostatic hyperplasia with lower urinary tract symptoms; E87.5 Hyperkalemia; F41.9 Anxiety disorder, unspecified; J44.9 Chronic obstructive pulmonary disease, unspecified; Z80.3 Family history of malignant neoplasm of breast; Z82.49 Family history of ischemic heart disease and other diseases of the circulatory system; D64.81 Anemia due to antineoplastic chemotherapy; D63.0 Anemia in neoplastic disease; R74.01 Elevation of levels of liver transaminase levels; Z79.899 Other long term (current) drug therapy; B95.2 Enterococcus as the cause of diseases classified elsewhere; B96.89 Other specified bacterial agents as the cause of diseases classified elsewhere; F32.A Depression, unspecified; N13.9 Obstructive and reflux uropathy, unspecified; Z99.2 Dependence on renal dialysis; T45.1X5A Adverse effect of antineoplastic and immunosuppressive drugs, initial encounter

== ENCOUNTER → 2022-01-22 | Outpatient (CLI) | payer OTHER ==
[~2022-01-22] MED LIST changes: +DOCU100C16 PO; +LEVO1TAB39 PO; +VITMTA PO
== END ==
LOC: M LABSMTC 10:15
PROVIDERS: ATTEND Anesthesiology
DX: Z01.812 Encounter for preprocedural laboratory examination (principal); Z11.52 Encounter for screening for COVID-19

== ENCOUNTER → 2022-01-27 | Outpatient (CLI) | payer MEDICARE, OTHER ==
[~2022-01-27] MED LIST changes: +ISOVUE-300 61% 50ML VIAL As Ordered ONE; +LIDOCAINE 1% MDV 20ML VIAL As Ordered ONE; +NS 1,000 ML IV SCH; +ceFAZolin 2 GM/D5W 50 ML IV BAG As Ordered ONE; +ceFAZolin SOD 2 GM in D5W MINI-BAG PLUS 50 ML IV ONE
[2022-01-27 12:25] VITALS: BP 155/90
== END ==
LOC: M IRPRO 10:43
PROVIDERS: ATTEND Radiology Diagnostic Radiology
DX: C67.9 Malignant neoplasm of bladder, unspecified (principal)
CPT/HCPCS: 50435; C1729; C1769; G0463; J0690; Q9967

== ENCOUNTER → 2022-01-30 | Outpatient (CLI) | payer MEDICARE, OTHER ==
[~2022-01-30] MED LIST changes: -ISOVUE-300 61% 50ML VIAL As Ordered ONE; -LIDOCAINE 1% MDV 20ML VIAL As Ordered ONE; -NS 1,000 ML IV SCH; -ceFAZolin 2 GM/D5W 50 ML IV BAG As Ordered ONE; -ceFAZolin SOD 2 GM in D5W MINI-BAG PLUS 50 ML IV ONE
== END ==
LOC: M LAB 12:21
PROVIDERS: ATTEND Internal Medicine Nephrology
DX: D50.9 Iron deficiency anemia, unspecified (principal); Z79.899 Other long term (current) drug therapy

== ENCOUNTER 2022-01-31 09:41 | Outpatient (CLI) | payer MEDICARE, OTHER ==
[2022-01-31] VITALS (9 sets, daily range): BP systolic 154–190; BP diastolic 74–100
[~2022-01-31] VITALS: Ht 175.3 cm; Wt 70.5 kg
== END 2022-01-31 15:35 | disposition home or self-care (01) ==
LOC: M INFU 09:41
PROVIDERS: ATTEND Internal Medicine Nephrology
DX: D64.9 Anemia, unspecified (principal); N18.6 End stage renal disease
CPT/HCPCS: 36430; P9016

== ENCOUNTER 2022-03-13 17:23 | Emergency (ER) | payer MEDICARE, OTHER ==
[~2022-03-13] VITALS: Ht 172.7 cm; Wt 70.5 kg
[2022-03-13 17:24] VITALS: BP 134/74
== END 2022-03-13 22:06 | disposition left against medical advice (07) ==
LOC: M ED 17:23
DX: Z53.21 Procedure and treatment not carried out due to patient leaving prior to being seen by health care provider (principal)

== ENCOUNTER → 2022-03-18 | Outpatient (CLI) | payer OTHER, MEDICARE | LOC: M CLY 10:46 | PROVIDERS: ATTEND Urology | DX: C67.8 Malignant neoplasm of overlapping sites of bladder (principal) ==

== ENCOUNTER → 2022-03-18 | Outpatient (REF) | payer OTHER, MEDICARE ==
[2022-03-18 16:42] LABS: HEMOGLOBIN 10.3 g/dl (13.5-17.5); MEAN CORPUSCULAR HEMOGLOBIN 28.8 pg (27.0-33.0); MEAN CORPUSCULAR HGB CONC 30.3 g/dl (32.0-36.5); PLATELET COUNT, AUTOMATED 506 10^3/uL (150-450); RED BLOOD COUNT 3.58 10^6/uL (4.30-6.10); WHITE BLOOD COUNT 13.9 10^3/uL (4.0-10.0)
[2022-03-18 16:54] LABS: INR 1.18; PROTHROMBIN TIME 15.2 SECONDS (12.5-14.5)
[2022-03-18 17:00] LABS: ALBUMIN 3.1 G/DL (3.2-5.2); BILIRUBIN,TOTAL 0.2 MG/DL (0.3-1.2); CALCIUM LEVEL 9.7 MG/DL (8.3-10.6); CREATININE FOR GFR 2.28 MG/DL (0.70-1.30); GLOMERULAR FILTRATION RATE 30.7 (>49); POTASSIUM SERUM 5.1 MMOL/L (3.5-5.1); TOTAL PROTEIN 7.5 G/DL (5.7-8.2)
== END ==
LOC: M SFHCCLAY 10:38
PROVIDERS: ATTEND Urology
DX: C67.8 Malignant neoplasm of overlapping sites of bladder (principal)

== ENCOUNTER → 2022-03-26 | Outpatient (CLI) | payer MEDICARE, OTHER | LOC: M LABSMTC 09:17 | PROVIDERS: ATTEND Anesthesiology | DX: Z01.818 Encounter for other preprocedural examination (principal) ==

== ENCOUNTER 2022-03-31 06:17 | Inpatient (IN) | payer MEDICARE, OTHER ==
[~2022-03-31] VITALS: Ht 172.7 cm; Wt 66.9 kg
[2022-03-31] VITALS (10 sets, daily range): BP systolic 121–190; BP diastolic 66–85
[~2022-03-31 06:17] MED LIST changes: +ceFAZolin SOD 2 GM in IV 1 EA IV ONE
[2022-03-31] MEDS ORDERED: propofoL 200 MG/20 ML VIAL As Ordered ONE (06:54)
[2022-03-31] MEDS ORDERED: LIDOCAINE 2% 100MG/5ML SDV (FOR ANES.) As Ordered ONE (06:54)
[2022-03-31] MEDS ORDERED: SUGAMMADEX SODIUM 500 MG/5 ML VIAL (BRIDION) As Ordered ONE (06:54)
[2022-03-31] MEDS ORDERED: ROCURONIUM BROMIDE 50MG/5ML VIAL As Ordered ONE ×3 (06:54→10:08)
[2022-03-31] MEDS ORDERED: ONDANSETRON 4MG 2ML VIAL As Ordered ONE (06:54)
[2022-03-31] MEDS ORDERED: D5W/0.2% SODIUM CHLORIDE 1,000 ML IV SCH (06:55)
[2022-03-31] MEDS ORDERED: fentaNYL 250 MCG/5 ML INJECTION As Ordered ONE (07:20)
[2022-03-31] MEDS ORDERED: MIDAZOLAM INJ 2MG/2ML VIAL As Ordered ONE (07:20)
[2022-03-31] MEDS ORDERED: HEPARIN SOD (PORCINE) 5000UNITS/ML 1ML VIAL/SYRINGE SQ ONE (07:45)
[2022-03-31] MEDS ORDERED: NS 1,000 ML IV SCH (07:55)
[2022-03-31] MEDS ORDERED: ACETAMINOPHEN 1000MG 100ML IV BAG As Ordered ONE (08:25)
[2022-03-31] MEDS ORDERED: fentaNYL 100 MCG/2 ML INJECTION As Ordered ONE (09:16)
[2022-03-31] MEDS ORDERED: LACRILUBE (AKWA TEARS) OPHTH OINT 3.5GM As Ordered ONE (09:20)
[2022-03-31] MEDS ORDERED: HYDROmorphone HCL 2MG/ML 1ML VIAL As Ordered ONE (10:10)
[2022-03-31] MEDS ORDERED: ceFAZolin 1GM VIAL As Ordered ONE (10:49)
[2022-03-31] MEDS ORDERED: HYDROMORPHONE HCL 0.5 MG/ 0.5 ML SYRINGE IV PRN (12:10)
[2022-03-31] MEDS ORDERED: LR 1,000 ML IV SCH (12:10)
[2022-03-31] MEDS ORDERED: oxyCODONE 5MG TAB PO PRN (12:10)
[2022-03-31] MEDS ORDERED: ONDANSETRON 4MG 2ML VIAL IV PRN (12:10)
[2022-03-31] MEDS ORDERED: fentaNYL 100 MCG/2 ML INJECTION IV PRN (12:10)
[2022-03-31] MEDS: LABETALOL 100MG/20ML VIAL IV PRN ×2 (12:25→12:48)
[2022-03-31] MEDS ORDERED: LABETALOL 100MG/20ML VIAL As Ordered ONE (12:26)
[2022-03-31 13:06] LABS: BASO # 0.1 10^3/uL (0.0-0.2); BASO % 0.3 % (0.0-1.0); HEMATOCRIT 32.8 % (42.0-52.0); HEMOGLOBIN 9.7 g/dl (13.5-17.5); LYMPH # 0.8 10^3/uL (1.5-5.0); LYMPH % 3.7 % (24.0-44.0); MEAN CORPUSCULAR HEMOGLOBIN 28.6 pg (27.0-33.0); MEAN CORPUSCULAR HGB CONC 29.6 g/dl (32.0-36.5); MEAN CORPUSCULAR VOLUME 96.8 fl (80.0-96.0); MONO # 0.7 10^3/uL (0.0-0.8); MONO % 3.3 % (2.0-8.0); NEUTROPHILS # 19.9 10^3/uL (1.5-8.5); PLATELET COUNT, AUTOMATED 513 10^3/uL (150-450); RED BLOOD COUNT 3.39 10^6/uL (4.30-6.10); WHITE BLOOD COUNT 21.7 10^3/uL (4.0-10.0)
[2022-03-31 13:29] LABS: ALBUMIN 2.5 G/DL (3.2-5.2); ALKALINE PHOSPHATASE 79 U/L (46-116); ALT/SGPT 12 U/L (7.0-40); AST/SGOT 16 U/L (<34); BILIRUBIN,TOTAL 0.3 MG/DL (0.3-1.2); BLOOD UREA NITROGEN 35 MG/DL (9-23); CALCIUM LEVEL 8.5 MG/DL (8.3-10.6); CARBON DIOXIDE LEVEL 19 MMOL/L (20-31); CHLORIDE LEVEL 106 MMOL/L (98-107); CK-MB VALUE MASS < 1.0 NG/ML (<3.6); CPK CREATINE PHOSPHOKINASE 85 U/L (46-171); CREATININE FOR GFR 3.34 MG/DL (0.70-1.30); GLOMERULAR FILTRATION RATE 19.8 (>49); GLUCOSE, FASTING 135 MG/DL (74-106); MAGNESIUM LEVEL 1.8 MG/DL (1.8-2.4); MB/CK RELATIVE INDEX 1.17 (< OR =4); PHOSPHORUS LEVEL 5.5 MG/DL (2.4-5.1); POTASSIUM SERUM 5.3 MMOL/L (3.5-5.1); SODIUM LEVEL 136 MMOL/L (136-145); TOTAL PROTEIN 6.6 G/DL (5.7-8.2)
[2022-03-31 14:05] LABS: ABG BASE EXCESS -6.7 (-2.0-2.0); ABG HCO3 18.7 MEQ/L (22.0-26.0); ABG O2 SATURATION 96.9 % (95.0-99.0); ABG PARTIAL PRESSURE O2 92.4 mmHg (75.0-100.0); ABG STANDARD HCO3 18.9 MEQ/L (22.0-26.0); ABG TOTAL CO2 19.8 MEQ/L (23.0-31.0); ABG pH (ARTERIAL) 7.321 UNITS (7.350-7.450)
[2022-03-31] MEDS ORDERED: ceFAZolin SOD 1 GM in D5W MINI-BAG PLUS 50 ML IV SCH (16:00)
[2022-03-31] MEDS: HEPARIN SOD (PORCINE) 5000UNITS/ML 1ML VIAL/SYRINGE SQ SCH ×2 (16:22→23:41)
[2022-03-31] MEDS ORDERED: HEPARIN 1,000UNITS/ML 10ML VIAL (FOR RADIOLOGY & DIALYSIS ONLY) XX SCH (17:30)
[2022-03-31] MEDS ORDERED: SODIUM CHLORIDE 0.9% 1000ML IV PRN (17:30)
[2022-03-31] MEDS ORDERED: HEPARIN 1,000UNITS/ML 10ML VIAL (FOR RADIOLOGY & DIALYSIS ONLY) IV PRN (17:30)
[2022-03-31] MEDS: NS 0.45% 1,000 ML IV SCH (17:37)
[2022-03-31] MEDS: NORCO, ANEXSIA 5/325MG TABLET (HYDROcodone/ACETAMINOPHEN) PO PRN ×2 (18:11→22:18)
[2022-04-01] VITALS (18 sets, daily range): BP systolic 117–170; BP diastolic 58–83
[2022-04-01] MEDS: NORCO, ANEXSIA 5/325MG TABLET (HYDROcodone/ACETAMINOPHEN) PO PRN ×3 (02:50→20:35)
[2022-04-01 06:22] LABS: BASO # 0.1 10^3/uL (0.0-0.2); BASO % 0.5 % (0.0-1.0); EOS # 0.1 10^3/uL (0.0-0.5); EOS % 0.3 % (0.0-3.0); HEMATOCRIT 31.6 % (42.0-52.0); HEMOGLOBIN 9.5 g/dl (13.5-17.5); LYMPH # 2.9 10^3/uL (1.5-5.0); LYMPH % 15.4 % (24.0-44.0); MEAN CORPUSCULAR HEMOGLOBIN 28.4 pg (27.0-33.0); MEAN CORPUSCULAR HGB CONC 30.1 g/dl (32.0-36.5); MEAN CORPUSCULAR VOLUME 94.3 fl (80.0-96.0); MONO # 1.5 10^3/uL (0.0-0.8); NEUTROPHILS # 14.3 10^3/uL (1.5-8.5); NEUTROPHILS % 75.1 % (36.0-66.0); PLATELET COUNT, AUTOMATED 492 10^3/uL (150-450); RED BLOOD COUNT 3.35 10^6/uL (4.30-6.10)
[2022-04-01] MEDS: NS 0.45% 1,000 ML IV SCH ×2 (06:27→19:57)
[2022-04-01 07:01] LABS: ALBUMIN 2.3 G/DL (3.2-5.2); BILIRUBIN,TOTAL 0.2 MG/DL (0.3-1.2); CALCIUM LEVEL 8.5 MG/DL (8.3-10.6); CREATININE FOR GFR 2.58 MG/DL (0.70-1.30); GLOMERULAR FILTRATION RATE 26.7 (>49); POTASSIUM SERUM 4.9 MMOL/L (3.5-5.1); TOTAL PROTEIN 6.1 G/DL (5.7-8.2)
[2022-04-01] MEDS: ATORVASTATIN 10 MG TAB PO SCH (07:49)
[2022-04-01] MEDS: HEPARIN SOD (PORCINE) 5000UNITS/ML 1ML VIAL/SYRINGE SQ SCH ×2 (07:49→16:23)
[2022-04-01] MEDS: CitaloPRAM (CeleXA) 20 MG TAB PO SCH (07:49)
[2022-04-01] MEDS ORDERED: METOPROLOL 5 MG/5 ML VIAL IV PRN (08:20)
[2022-04-01] MEDS: ACETAMINOPHEN TAB 650MG DOSE (2X325MG) PO PRN ×2 (09:15→21:55)
[2022-04-01] MEDS: MORPHINE 2 MG/ML 1ML VIAL IV PRN ×2 (12:10→16:24)
[2022-04-01] MEDS ORDERED: ceFAZolin SOD 1 GM in D5W MINI-BAG PLUS 50 ML IV SCH (16:00)
[2022-04-01] MEDS: cloNIDine HCL 0.1 MG/24 HR PATCH TOP SCH (18:08)
[2022-04-02] MEDS: HEPARIN SOD (PORCINE) 5000UNITS/ML 1ML VIAL/SYRINGE SQ SCH ×3 (00:19→15:57)
[2022-04-02 03:33] VITALS: BP 167/81
[2022-04-02] MEDS: NORCO, ANEXSIA 5/325MG TABLET (HYDROcodone/ACETAMINOPHEN) PO PRN ×3 (03:46→21:30)
[2022-04-02 08:00] VITALS: BP 155/80
[2022-04-02] MEDS: NS 0.45% 1,000 ML IV SCH (08:25)
[2022-04-02 08:49] LABS: HEMATOCRIT 29.7 % (42.0-52.0); HEMOGLOBIN 8.7 g/dl (13.5-17.5); MEAN CORPUSCULAR HGB CONC 29.3 g/dl (32.0-36.5); MEAN CORPUSCULAR VOLUME 95.5 fl (80.0-96.0); PLATELET COUNT, AUTOMATED 449 10^3/uL (150-450); RED BLOOD COUNT 3.11 10^6/uL (4.30-6.10)
[2022-04-02] MEDS: BISACODYL 5MG TAB PO SCH (09:01)
[2022-04-02] MEDS: CitaloPRAM (CeleXA) 20 MG TAB PO SCH (09:02)
[2022-04-02] MEDS: ATORVASTATIN 10 MG TAB PO SCH (09:02)
[2022-04-02] MEDS: DOCUSATE SODIUM 100MG CAPSULE PO SCH ×2 (09:09→21:29)
[2022-04-02 09:15] LABS: ALBUMIN 2.1 G/DL (3.2-5.2); ALKALINE PHOSPHATASE 111 U/L (46-116); ALT/SGPT < 9 U/L (7.0-40); AST/SGOT 15 U/L (<34); BILIRUBIN,TOTAL 0.2 MG/DL (0.3-1.2); BLOOD UREA NITROGEN 31 MG/DL (9-23); CALCIUM LEVEL 8.5 MG/DL (8.3-10.6); CARBON DIOXIDE LEVEL 22 MMOL/L (20-31); CHLORIDE LEVEL 102 MMOL/L (98-107); CREATININE FOR GFR 3.02 MG/DL (0.70-1.30); GLOMERULAR FILTRATION RATE 22.2 (>49); GLUCOSE, FASTING 70 MG/DL (74-106); POTASSIUM SERUM 4.5 MMOL/L (3.5-5.1); SODIUM LEVEL 136 MMOL/L (136-145); TOTAL PROTEIN 5.8 G/DL (5.7-8.2)
[2022-04-02] MEDS ORDERED: SODIUM CHLORIDE 0.9% 1000ML IV PRN (10:30)
[2022-04-02] MEDS ORDERED: HEPARIN 1,000UNITS/ML 10ML VIAL (FOR RADIOLOGY & DIALYSIS ONLY) IV PRN (10:30)
[2022-04-02] MEDS ORDERED: HEPARIN 1,000UNITS/ML 10ML VIAL (FOR RADIOLOGY & DIALYSIS ONLY) XX SCH (10:30)
[2022-04-02 12:00] VITALS: BP 160/72
[2022-04-02 14:00] VITALS: BP 127/70
[2022-04-02 16:00] VITALS: BP 127/70
[2022-04-02 19:44] VITALS: BP 137/73
[2022-04-03] VITALS (7 sets, daily range): BP systolic 134–168; BP diastolic 74–87
[2022-04-03] MEDS: HEPARIN SOD (PORCINE) 5000UNITS/ML 1ML VIAL/SYRINGE SQ SCH ×4 (00:16→23:19)
[2022-04-03 03:38] LABS: HEMATOCRIT 28.9 % (42.0-52.0); HEMOGLOBIN 8.9 g/dl (13.5-17.5); MEAN CORPUSCULAR HEMOGLOBIN 28.9 pg (27.0-33.0); MEAN CORPUSCULAR HGB CONC 30.8 g/dl (32.0-36.5); MEAN CORPUSCULAR VOLUME 93.8 fl (80.0-96.0); PLATELET COUNT, AUTOMATED 453 10^3/uL (150-450); RED BLOOD COUNT 3.08 10^6/uL (4.30-6.10); WHITE BLOOD COUNT 17.2 10^3/uL (4.0-10.0)
[2022-04-03 04:04] LABS: ALKALINE PHOSPHATASE 147 U/L (46-116); ALT/SGPT < 9 U/L (7.0-40); AST/SGOT 13 U/L (<34); BILIRUBIN,TOTAL 0.3 MG/DL (0.3-1.2); BLOOD UREA NITROGEN 20 MG/DL (9-23); CALCIUM LEVEL 8.9 MG/DL (8.3-10.6); CARBON DIOXIDE LEVEL 25 MMOL/L (20-31); CHLORIDE LEVEL 101 MMOL/L (98-107); CREATININE FOR GFR 2.13 MG/DL (0.70-1.30); GLOMERULAR FILTRATION RATE 33.3 (>49); GLUCOSE, FASTING 72 MG/DL (74-106); POTASSIUM SERUM 3.7 MMOL/L (3.5-5.1); SODIUM LEVEL 138 MMOL/L (136-145)
[2022-04-03] MEDS: NORCO, ANEXSIA 5/325MG TABLET (HYDROcodone/ACETAMINOPHEN) PO PRN ×3 (04:05→18:09)
[2022-04-03] MEDS: CitaloPRAM (CeleXA) 20 MG TAB PO SCH (08:39)
[2022-04-03] MEDS: BISACODYL 5MG TAB PO SCH (08:39)
[2022-04-03] MEDS: DOCUSATE SODIUM 100MG CAPSULE PO SCH ×2 (08:40→20:44)
[2022-04-03] MEDS: ATORVASTATIN 10 MG TAB PO SCH (08:40)
[2022-04-03] MEDS ORDERED: **hydrALAZINE** 10 MG TAB PO ONE (20:45)
[2022-04-04] MEDS: ONDANSETRON 4MG 2ML VIAL IV PRN ×2 (00:01→08:00)
[2022-04-04] MEDS: NORCO, ANEXSIA 5/325MG TABLET (HYDROcodone/ACETAMINOPHEN) PO PRN ×2 (00:21→08:01)
[2022-04-04 06:00] VITALS: BP 164/68
[2022-04-04] MEDS ORDERED: SODIUM CHLORIDE 0.9% 1000ML IV PRN (06:00)
[2022-04-04] MEDS ORDERED: HEPARIN 1,000UNITS/ML 10ML VIAL (FOR RADIOLOGY & DIALYSIS ONLY) XX SCH (06:00)
[2022-04-04] MEDS ORDERED: HEPARIN 1,000UNITS/ML 10ML VIAL (FOR RADIOLOGY & DIALYSIS ONLY) IV PRN (06:00)
[2022-04-04 06:01] LABS: HEMATOCRIT 30.8 % (42.0-52.0); HEMOGLOBIN 9.3 g/dl (13.5-17.5); MEAN CORPUSCULAR HEMOGLOBIN 28.4 pg (27.0-33.0); MEAN CORPUSCULAR HGB CONC 30.2 g/dl (32.0-36.5); MEAN CORPUSCULAR VOLUME 93.9 fl (80.0-96.0); PLATELET COUNT, AUTOMATED 518 10^3/uL (150-450); RED BLOOD COUNT 3.28 10^6/uL (4.30-6.10); WHITE BLOOD COUNT 14.2 10^3/uL (4.0-10.0)
[2022-04-04] MEDS: CitaloPRAM (CeleXA) 20 MG TAB PO SCH (06:27)
[2022-04-04] MEDS: ATORVASTATIN 10 MG TAB PO SCH (06:27)
[2022-04-04] MEDS: DOCUSATE SODIUM 100MG CAPSULE PO SCH ×2 (06:27→21:00)
[2022-04-04] MEDS: BISACODYL 5MG TAB PO SCH (06:27)
[2022-04-04] MEDS: HEPARIN SOD (PORCINE) 5000UNITS/ML 1ML VIAL/SYRINGE SQ SCH ×3 (06:27→23:07)
[2022-04-04 06:30] LABS: ALBUMIN 2.1 G/DL (3.2-5.2); ALKALINE PHOSPHATASE 146 U/L (46-116); ALT/SGPT < 9 U/L (7.0-40); AST/SGOT 14 U/L (<34); BILIRUBIN,TOTAL 0.3 MG/DL (0.3-1.2); BLOOD UREA NITROGEN 31 MG/DL (9-23); CALCIUM LEVEL 9.2 MG/DL (8.3-10.6); CARBON DIOXIDE LEVEL 32 MMOL/L (20-31); CHLORIDE LEVEL 97 MMOL/L (98-107); CREATININE FOR GFR 2.68 MG/DL (0.70-1.30); GLOMERULAR FILTRATION RATE 25.5 (>49); GLUCOSE, FASTING 124 MG/DL (74-106); POTASSIUM SERUM 4.2 MMOL/L (3.5-5.1); SODIUM LEVEL 138 MMOL/L (136-145); TOTAL PROTEIN 6.4 G/DL (5.7-8.2)
[2022-04-04] MEDS ORDERED: BISACODYL 10MG SUPP PR ONE (07:45)
[2022-04-04 14:00] VITALS: BP 171/91
[2022-04-04 14:35] VITALS: BP 170/91
[2022-04-04] MEDS: NS 0.45% 1,000 ML IV SCH (14:50)
[2022-04-04 18:05] VITALS: BP 162/90
[2022-04-04] MEDS: ACETAMINOPHEN TAB 650MG DOSE (2X325MG) PO PRN (18:06)
[2022-04-04 20:00] VITALS: BP 161/90
[2022-04-05] MEDS: NS 0.45% 1,000 ML IV SCH ×2 (05:13→17:51)
[2022-04-05 06:00] VITALS: BP 164/89
[2022-04-05 08:00] VITALS: BP 174/92
[2022-04-05] MEDS: HEPARIN SOD (PORCINE) 5000UNITS/ML 1ML VIAL/SYRINGE SQ SCH ×3 (08:36→23:22)
[2022-04-05] MEDS: ACETAMINOPHEN TAB 650MG DOSE (2X325MG) PO PRN (08:37)
[2022-04-05] MEDS: ATORVASTATIN 10 MG TAB PO SCH (08:38)
[2022-04-05] MEDS: BISACODYL 5MG TAB PO SCH (08:38)
[2022-04-05] MEDS: DOCUSATE SODIUM 100MG CAPSULE PO SCH ×2 (08:38→20:23)
[2022-04-05] MEDS: CitaloPRAM (CeleXA) 20 MG TAB PO SCH (08:38)
[2022-04-05] MEDS: NORCO, ANEXSIA 5/325MG TABLET (HYDROcodone/ACETAMINOPHEN) PO PRN ×2 (11:08→16:29)
[2022-04-05] MEDS: METOCLOPRAMIDE INJ 10MG/2ML VIAL IV SCH ×3 (11:33→23:22)
[2022-04-05 14:00] VITALS: BP 168/94
[2022-04-05] MEDS: AMINO AC/ELECTROLYTE/DEX/CALC 1,000 ML IV SCH (17:46)
[2022-04-05] MEDS: INSULIN LISPRO (NovoLOG) PER UNIT SC SCH (17:53)
[2022-04-05 21:10] VITALS: BP 163/91
[2022-04-06] MEDS: ACETAMINOPHEN TAB 650MG DOSE (2X325MG) PO PRN ×2 (01:51→08:21)
[2022-04-06] MEDS: METOCLOPRAMIDE INJ 10MG/2ML VIAL IV SCH ×4 (05:44→23:45)
[2022-04-06 05:50] VITALS: BP 159/88
[2022-04-06] MEDS: INSULIN LISPRO (NovoLOG) PER UNIT SC SCH ×4 (06:00→18:00)
[2022-04-06] MEDS: BISACODYL 5MG TAB PO SCH (08:20)
[2022-04-06] MEDS: DOCUSATE SODIUM 100MG CAPSULE PO SCH ×2 (08:21→20:11)
[2022-04-06] MEDS: ATORVASTATIN 10 MG TAB PO SCH (08:21)
[2022-04-06] MEDS: HEPARIN SOD (PORCINE) 5000UNITS/ML 1ML VIAL/SYRINGE SQ SCH ×3 (08:23→23:45)
[2022-04-06 08:34] LABS: HEMATOCRIT 28.8 % (42.0-52.0); HEMOGLOBIN 8.6 g/dl (13.5-17.5); MEAN CORPUSCULAR HEMOGLOBIN 28.1 pg (27.0-33.0); MEAN CORPUSCULAR HGB CONC 29.9 g/dl (32.0-36.5); MEAN CORPUSCULAR VOLUME 94.1 fl (80.0-96.0); PLATELET COUNT, AUTOMATED 556 10^3/uL (150-450); RED BLOOD COUNT 3.06 10^6/uL (4.30-6.10); WHITE BLOOD COUNT 12.3 10^3/uL (4.0-10.0)
[2022-04-06 08:57] LABS: ALBUMIN 1.9 G/DL (3.2-5.2); CALCIUM LEVEL 8.2 MG/DL (8.3-10.6); CREATININE FOR GFR 2.24 MG/DL (0.70-1.30); GLOMERULAR FILTRATION RATE 31.4 (>49); MAGNESIUM LEVEL 1.8 MG/DL (1.8-2.4); PHOSPHORUS LEVEL 3.5 MG/DL (2.4-5.1); POTASSIUM SERUM 4.3 MMOL/L (3.5-5.1)
[2022-04-06] MEDS ORDERED: BISACODYL 10MG SUPP PR ONE (09:55)
[2022-04-06] MEDS: MIRALAX *UNIT DOSE* 17GM PACKET PO SCH (10:36)
[2022-04-06] MEDS: AMINO AC/ELECTROLYTE/DEX/CALC 1,000 ML IV SCH ×2 (10:36→23:46)
[2022-04-06] MEDS: NORCO, ANEXSIA 5/325MG TABLET (HYDROcodone/ACETAMINOPHEN) PO PRN ×2 (12:31→20:12)
[2022-04-06 14:00] VITALS: BP 155/88
[2022-04-06 21:20] VITALS: BP 153/89
[2022-04-07] MEDS: NORCO, ANEXSIA 5/325MG TABLET (HYDROcodone/ACETAMINOPHEN) PO PRN ×3 (00:58→20:26)
[2022-04-07 05:30] VITALS: BP 151/89
[2022-04-07] MEDS: METOCLOPRAMIDE INJ 10MG/2ML VIAL IV SCH ×4 (05:46→23:15)
[2022-04-07] MEDS: INSULIN LISPRO (NovoLOG) PER UNIT SC SCH ×3 (05:46→12:00)
[2022-04-07] MEDS: HEPARIN SOD (PORCINE) 5000UNITS/ML 1ML VIAL/SYRINGE SQ SCH ×3 (05:46→23:14)
[2022-04-07] MEDS: DOCUSATE SODIUM 100MG CAPSULE PO SCH ×2 (05:47→20:25)
[2022-04-07] MEDS: ATORVASTATIN 10 MG TAB PO SCH (05:47)
[2022-04-07] MEDS: BISACODYL 5MG TAB PO SCH (05:48)
[2022-04-07] MEDS: MIRALAX *UNIT DOSE* 17GM PACKET PO SCH (05:49)
[2022-04-07 07:33] LABS: CALCIUM LEVEL 8.6 MG/DL (8.3-10.6); CREATININE FOR GFR 2.09 MG/DL (0.70-1.30); PHOSPHORUS LEVEL 4.4 MG/DL (2.4-5.1); POTASSIUM SERUM 5.1 MMOL/L (3.5-5.1)
[2022-04-07] MEDS: ACETAMINOPHEN TAB 650MG DOSE (2X325MG) PO PRN ×2 (11:53→15:58)
[2022-04-07] MEDS: BISACODYL 10MG SUPP PR SCH (12:31)
[2022-04-07 14:00] VITALS: BP 132/82
[2022-04-07] MEDS: AMINO AC/ELECTROLYTE/DEX/CALC 1,000 ML IV SCH (16:36)
[2022-04-07 20:00] VITALS: BP 142/88
[2022-04-08] MEDS: AMINO AC/ELECTROLYTE/DEX/CALC 1,000 ML IV SCH (04:03)
[2022-04-08] MEDS: METOCLOPRAMIDE INJ 10MG/2ML VIAL IV SCH ×4 (04:03→23:29)
[2022-04-08 05:55] LABS: HEMATOCRIT 30.5 % (42.0-52.0); HEMOGLOBIN 9.1 g/dl (13.5-17.5); MEAN CORPUSCULAR HEMOGLOBIN 28.7 pg (27.0-33.0); MEAN CORPUSCULAR HGB CONC 29.8 g/dl (32.0-36.5); MEAN CORPUSCULAR VOLUME 96.2 fl (80.0-96.0); PLATELET COUNT, AUTOMATED 626 10^3/uL (150-450); RED BLOOD COUNT 3.17 10^6/uL (4.30-6.10); WHITE BLOOD COUNT 20.1 10^3/uL (4.0-10.0)
[2022-04-08 06:00] VITALS: BP 148/84
[2022-04-08 06:31] LABS: ALBUMIN 2.2 G/DL (3.2-5.2); CALCIUM LEVEL 9.3 MG/DL (8.3-10.6); CREATININE FOR GFR 2.24 MG/DL (0.70-1.30); GLOMERULAR FILTRATION RATE 31.4 (>49); PHOSPHORUS LEVEL 4.7 MG/DL (2.4-5.1)
[2022-04-08] MEDS: HEPARIN SOD (PORCINE) 5000UNITS/ML 1ML VIAL/SYRINGE SQ SCH ×3 (08:00→23:30)
[2022-04-08] MEDS: MIRALAX *UNIT DOSE* 17GM PACKET PO SCH (08:00)
[2022-04-08] MEDS: BISACODYL 10MG SUPP PR SCH (08:00)
[2022-04-08] MEDS: BISACODYL 5MG TAB PO SCH (08:00)
[2022-04-08] MEDS: ONDANSETRON 4MG 2ML VIAL IV PRN (08:00)
[2022-04-08] MEDS: DOCUSATE SODIUM 100MG CAPSULE PO SCH ×2 (08:00→20:29)
[2022-04-08] MEDS: ATORVASTATIN 10 MG TAB PO SCH (08:00)
[2022-04-08] MEDS: NORCO, ANEXSIA 5/325MG TABLET (HYDROcodone/ACETAMINOPHEN) PO PRN (08:01)
[2022-04-08 14:00] VITALS: BP 145/85
[2022-04-08 17:15] VITALS: BP 145/85
[2022-04-08] MEDS: cloNIDine HCL 0.1 MG/24 HR PATCH TOP SCH (17:15)
[2022-04-08] MEDS: INSULIN LISPRO (NovoLOG) PER UNIT SC SCH ×2 (18:00→23:31)
[2022-04-08] MEDS ORDERED: AMINO AC/ELECTROLYTE/DEX/CALC 1,000 ML IV SCH (18:00)
[2022-04-08 20:00] VITALS: BP 150/86
[2022-04-08] MEDS: ACETAMINOPHEN TAB 650MG DOSE (2X325MG) PO PRN (20:29)
[2022-04-09] MEDS: METOCLOPRAMIDE INJ 10MG/2ML VIAL IV SCH ×2 (04:21→09:52)
[2022-04-09 06:00] VITALS: BP 156/87
[2022-04-09] MEDS: INSULIN LISPRO (NovoLOG) PER UNIT SC SCH (06:00)
[2022-04-09 06:25] LABS: HEMATOCRIT 27.7 % (42.0-52.0); HEMOGLOBIN 8.3 g/dl (13.5-17.5); MEAN CORPUSCULAR HEMOGLOBIN 28.2 pg (27.0-33.0); MEAN CORPUSCULAR VOLUME 94.2 fl (80.0-96.0); PLATELET COUNT, AUTOMATED 691 10^3/uL (150-450); RED BLOOD COUNT 2.94 10^6/uL (4.30-6.10); WHITE BLOOD COUNT 17.4 10^3/uL (4.0-10.0)
[2022-04-09 07:27] LABS: ALBUMIN 2.1 G/DL (3.2-5.2); BILIRUBIN,TOTAL 0.3 MG/DL (0.3-1.2); CALCIUM LEVEL 9.3 MG/DL (8.3-10.6); CREATININE FOR GFR 2.35 MG/DL (0.70-1.30); GLOMERULAR FILTRATION RATE 29.7 (>49); PHOSPHORUS LEVEL 4.9 MG/DL (2.4-5.1); POTASSIUM SERUM 5.4 MMOL/L (3.5-5.1); TOTAL PROTEIN 6.5 G/DL (5.7-8.2)
[2022-04-09] MEDS ORDERED: SODIUM BICARBONATE 325 MG TAB PO SCH (09:00)
[2022-04-09] MEDS: MIRALAX *UNIT DOSE* 17GM PACKET PO SCH (09:00)
[2022-04-09] MEDS: BISACODYL 10MG SUPP PR SCH (09:00)
[2022-04-09] MEDS: BISACODYL 5MG TAB PO SCH (09:52)
[2022-04-09] MEDS: HEPARIN SOD (PORCINE) 5000UNITS/ML 1ML VIAL/SYRINGE SQ SCH (09:52)
[2022-04-09] MEDS: ATORVASTATIN 10 MG TAB PO SCH (09:52)
[2022-04-09] MEDS: DOCUSATE SODIUM 100MG CAPSULE PO SCH (09:52)
[2022-04-09] MEDS ORDERED: PATIROMER SORBITEX CALCIUM 8.4 GM POWDER PACKET (VELTASSA) PO ONE (10:00)
== END 2022-04-09 14:48 | disposition home or self-care (01) | DRG 656 ==
LOC: M OR 06:17 → M ICU 13:18 → M PCU 04-01 20:17 → M MSPAV 04-03 20:06
PROVIDERS: ADMIT Urology; ATTEND Internal Medicine
PROC: 0DBB4ZZ Excision of Ileum, Percutaneous Endoscopic Approach (ICD-10-PCS; 2022-03-31)
PROC: 07BC4ZZ Excision of Pelvis Lymphatic, Percutaneous Endoscopic Approach (ICD-10-PCS; 2022-03-31)
PROC: 8E0W4CZ Robotic Assisted Procedure of Trunk Region, Percutaneous Endoscopic Approach (ICD-10-PCS; 2022-03-31)
PROC: 0T1847C Bypass Bilateral Ureters to Ileocutaneous with Autologous Tissue Substitute, Percutaneous Endoscopic Approach (ICD-10-PCS; principal; 2022-03-31 07:30)
DX: C67.9 Malignant neoplasm of bladder, unspecified (principal); N18.6 End stage renal disease; I12.0 Hypertensive chronic kidney disease with stage 5 chronic kidney disease or end stage renal disease; E87.20 Acidosis, unspecified; K91.89 Other postprocedural complications and disorders of digestive system; Z99.2 Dependence on renal dialysis; E78.5 Hyperlipidemia, unspecified; J44.9 Chronic obstructive pulmonary disease, unspecified; D63.0 Anemia in neoplastic disease; F41.9 Anxiety disorder, unspecified; Z90.49 Acquired absence of other specified parts of digestive tract; Z92.21 Personal history of antineoplastic chemotherapy; Z92.3 Personal history of irradiation; E87.5 Hyperkalemia; Z79.899 Other long term (current) drug therapy

== ENCOUNTER → 2022-04-11 | Outpatient (REF) | payer MEDICARE, OTHER ==
[~2022-04-11] MED LIST changes: -ceFAZolin SOD 2 GM in IV 1 EA IV ONE
[2022-04-11 18:19] LABS: ATYPICAL LYMPH 1 % (0-5); EOSINOPHILS 1 % (0-3); LYMPHOCYTES 6 % (16-44); MONOCYTES 5 % (0-5); NEUTROPHILS 86 % (28-66)
[2022-04-11 18:20] LABS: HYPOCHROMASIA 2+; PLATELET ESTIMATE INCREASED (NORMAL)
[2022-04-11 18:21] LABS: ANISOCYTOSIS 1+; PLATELET CLUMPS SMALL AMT
[2022-04-11 18:22] LABS: SCHISTOCYTES 1+
== END ==
LOC: M LAB REF 16:07
PROVIDERS: ATTEND Internal Medicine
DX: D72.829 Elevated white blood cell count, unspecified (principal)

== ENCOUNTER → 2022-05-05 | Outpatient (REF) | payer MEDICARE ==
[2022-05-05 18:52] LABS: CREATININE, URINE 33.86 MG/DL
[2022-05-05 19:08] LABS: CREATININE, SERUM 2.2 MG/DL (0.70-1.30)
== END ==
LOC: M LAB REF 16:43
PROVIDERS: ATTEND Internal Medicine Nephrology
DX: N17.9 Acute kidney failure, unspecified (principal)

== ENCOUNTER → 2022-05-16 | Outpatient (REF) | payer MEDICARE ==
[2022-05-16 18:01] LABS: ALBUMIN 3.5 G/DL (3.2-5.2); CALCIUM LEVEL 10.2 MG/DL (8.3-10.6); CREATININE FOR GFR 2.37 MG/DL (0.70-1.30); GLOMERULAR FILTRATION RATE 29.4 (>49); PHOSPHORUS LEVEL 4.8 MG/DL (2.4-5.1); POTASSIUM SERUM 5.7 MMOL/L (3.5-5.1)
== END ==
LOC: M LABDRAWC 16:43
PROVIDERS: ATTEND Internal Medicine Nephrology
DX: N17.8 Other acute kidney failure (principal)

== ENCOUNTER → 2022-06-03 | Outpatient (CLI) | payer MEDICARE | LOC: M RAD 10:09 | PROVIDERS: ATTEND Internal Medicine Nephrology | DX: C67.9 Malignant neoplasm of bladder, unspecified (principal) | CPT/HCPCS: 74176; 78306; A9503 ==

== ENCOUNTER → 2022-06-12 | Outpatient (REF) | payer MEDICARE, OTHER ==
[2022-06-12 17:48] LABS: CALCIUM LEVEL 11.1 MG/DL (8.3-10.6); CREATININE FOR GFR 3.67 MG/DL (0.70-1.30); GLOMERULAR FILTRATION RATE 17.8 (>49)
== END ==
LOC: M SFHCCLAY 12:04
PROVIDERS: ATTEND Urology
DX: N13.30 Unspecified hydronephrosis (principal)

== ENCOUNTER 2022-06-13 16:40 | Emergency (ER) | payer MEDICARE, OTHER ==
[~2022-06-13] VITALS: Ht 175.3 cm; Wt 58.9 kg
[2022-06-13 16:41] VITALS: BP 131/75
[2022-06-13 18:09] LABS: BASO # 0.1 10^3/uL (0.0-0.2); BASO % 0.4 % (0.0-1.0); EOS # 0.4 10^3/uL (0.0-0.5); EOS % 2.5 % (0.0-3.0); HEMATOCRIT 34.9 % (42.0-52.0); HEMOGLOBIN 10.5 g/dl (13.5-17.5); LYMPH # 1.4 10^3/uL (1.5-5.0); LYMPH % 9.6 % (24.0-44.0); MEAN CORPUSCULAR HEMOGLOBIN 27.5 pg (27.0-33.0); MEAN CORPUSCULAR HGB CONC 30.1 g/dl (32.0-36.5); MEAN CORPUSCULAR VOLUME 91.4 fl (80.0-96.0); MONO # 1.2 10^3/uL (0.0-0.8); NEUTROPHILS # 11.7 10^3/uL (1.5-8.5); NEUTROPHILS % 78.6 % (36.0-66.0); PLATELET COUNT, AUTOMATED 521 10^3/uL (150-450); RED BLOOD COUNT 3.82 10^6/uL (4.30-6.10); WHITE BLOOD COUNT 14.8 10^3/uL (4.0-10.0)
[2022-06-13 18:33] LABS: CALCIUM LEVEL 10.5 MG/DL (8.3-10.6); CREATININE FOR GFR 3.34 MG/DL (0.70-1.30); GLOMERULAR FILTRATION RATE 19.8 (>49); POTASSIUM SERUM 4.8 MMOL/L (3.5-5.1)
== END 2022-06-13 19:18 | disposition left against medical advice (07) ==
LOC: M ED 16:40
DX: N18.30 Chronic kidney disease, stage 3 unspecified (principal); E78.5 Hyperlipidemia, unspecified; C67.9 Malignant neoplasm of bladder, unspecified; F41.9 Anxiety disorder, unspecified; F32.A Depression, unspecified; F17.210 Nicotine dependence, cigarettes, uncomplicated; Z79.899 Other long term (current) drug therapy

== ENCOUNTER → 2022-06-16 | Outpatient (CLI) | payer MEDICARE ==
[~2022-06-16] MED LIST changes: +FUROSEMIDE 20MG/2ML VIAL As Ordered ONE; +SODI650T PO; +VELT1POW PO
== END ==
LOC: M RAD 13:39
PROVIDERS: ATTEND Urology
DX: N13.30 Unspecified hydronephrosis (principal)
CPT/HCPCS: 78708; A9562; J1940

== ENCOUNTER 2022-06-19 09:01 | Observation (INO) | payer MEDICARE ==
[~2022-06-19] VITALS: Ht 175.3 cm; Wt 55.6 kg
[~2022-06-19 09:01] MED LIST changes: -FUROSEMIDE 20MG/2ML VIAL As Ordered ONE; -SODI650T PO; -VELT1POW PO
[2022-06-19 10:00] LABS: BASO # 0.1 10^3/uL (0.0-0.2); BASO % 0.3 % (0.0-1.0); EOS # 0.2 10^3/uL (0.0-0.5); EOS % 0.9 % (0.0-3.0); HEMATOCRIT 41.1 % (42.0-52.0); HEMOGLOBIN 12.2 g/dl (13.5-17.5); LYMPH % 6.5 % (24.0-44.0); MEAN CORPUSCULAR HEMOGLOBIN 27.2 pg (27.0-33.0); MEAN CORPUSCULAR HGB CONC 29.7 g/dl (32.0-36.5); MEAN CORPUSCULAR VOLUME 91.5 fl (80.0-96.0); MONO # 0.9 10^3/uL (0.0-0.8); MONO % 5.8 % (2.0-8.0); NEUTROPHILS # 13.4 10^3/uL (1.5-8.5); NEUTROPHILS % 84.5 % (36.0-66.0); PLATELET COUNT, AUTOMATED 630 10^3/uL (150-450); RED BLOOD COUNT 4.49 10^6/uL (4.30-6.10); WHITE BLOOD COUNT 15.8 10^3/uL (4.0-10.0)
[2022-06-19 10:11] LABS: INR 1.33; PROTHROMBIN TIME 16.7 SECONDS (12.5-14.5)
[2022-06-19 10:12] LABS: PARTIAL THROMBOPLASTIN TIME 30.7 SECONDS (24.8-34.2)
[2022-06-19 10:29] LABS: LIPASE 24 U/L (12-53)
[2022-06-19 10:31] LABS: ALBUMIN 2.5 G/DL (3.2-5.2); ALKALINE PHOSPHATASE 126 U/L (46-116); ALT/SGPT 55 U/L (7.0-40); AST/SGOT 25 U/L (<34); BILIRUBIN,DIRECT < 0.1 MG/DL (<0.4); BILIRUBIN,TOTAL 0.2 MG/DL (0.3-1.2); BLOOD UREA NITROGEN 117 MG/DL (9-23); CALCIUM LEVEL 11.7 MG/DL (8.3-10.6); CARBON DIOXIDE LEVEL 21 MMOL/L (20-31); CHLORIDE LEVEL 102 MMOL/L (98-107); GLOMERULAR FILTRATION RATE 13.3 (>49); GLUCOSE, FASTING 118 MG/DL (74-106); POTASSIUM SERUM 5.3 MMOL/L (3.5-5.1); SODIUM LEVEL 133 MMOL/L (136-145); TOTAL PROTEIN 7.7 G/DL (5.7-8.2)
[2022-06-19] MEDS ORDERED: SODI650T PO (10:32)
[2022-06-19] MEDS ORDERED: VELT1POW PO (10:32)
[2022-06-19 11:05] LABS: RSV AMPLIFICATION NEGATIVE (NEGATIVE)
[2022-06-19] MEDS ORDERED: HOME MED LIST COMPLETE! XX SCH (11:15)
[2022-06-19] MEDS ORDERED: ISOVUE-300 61% 100ML VIAL As Ordered ONE (11:43)
[2022-06-19] MEDS ORDERED: fentaNYL 100 MCG/2 ML INJECTION As Ordered ONE (11:43)
[2022-06-19] MEDS ORDERED: diphenhydrAMINE 50MG/ML VIAL As Ordered ONE (11:43)
[2022-06-19] MEDS ORDERED: MIDAZOLAM INJ 2MG/2ML VIAL As Ordered ONE (11:44)
[2022-06-19] MEDS ORDERED: LIDOCAINE 1% MDV 20ML VIAL As Ordered ONE (11:44)
[2022-06-19] MEDS ORDERED: ceFAZolin SOD 2 GM in D5W MINI-BAG PLUS 50 ML IV ONE (11:55)
[2022-06-19] MEDS ORDERED: ceFAZolin 2 GM/D5W 50 ML IV BAG As Ordered ONE (11:55)
[2022-06-19] MEDS ORDERED: NS 1,000 ML IV SCH (11:55)
[2022-06-19] MEDS ORDERED: DOCUSATE SODIUM 100MG CAPSULE PO PRN (16:05)
[2022-06-19] MEDS ORDERED: ACETAMINOPHEN TAB 650MG DOSE (2X325MG) PO PRN (16:05)
[2022-06-19 17:26] VITALS: BP 163/93
[2022-06-19] MEDS: PIPERACILLIN/TAZOBACTAM SOD 2.25 GM in D5W MINI-BAG PLUS 50 ML IV SCH (18:06)
[2022-06-19] MEDS: PATIROMER SORBITEX CALCIUM 8.4 GM POWDER PACKET (VELTASSA) PO SCH (20:52)
[2022-06-19] MEDS: SODIUM BICARBONATE 325 MG TAB PO SCH (20:52)
[2022-06-19 22:00] VITALS: BP 149/90
[2022-06-20] MEDS: PIPERACILLIN/TAZOBACTAM SOD 2.25 GM in D5W MINI-BAG PLUS 50 ML IV SCH ×3 (01:16→17:35)
[2022-06-20 05:50] LABS: HEMATOCRIT 35.3 % (42.0-52.0); HEMOGLOBIN 10.7 g/dl (13.5-17.5); MEAN CORPUSCULAR HEMOGLOBIN 27.2 pg (27.0-33.0); MEAN CORPUSCULAR HGB CONC 30.3 g/dl (32.0-36.5); MEAN CORPUSCULAR VOLUME 89.8 fl (80.0-96.0); PLATELET COUNT, AUTOMATED 566 10^3/uL (150-450); RED BLOOD COUNT 3.93 10^6/uL (4.30-6.10); WHITE BLOOD COUNT 17.7 10^3/uL (4.0-10.0)
[2022-06-20 06:00] VITALS: BP 150/82
[2022-06-20 06:08] LABS: ALBUMIN 2.1 G/DL (3.2-5.2); BILIRUBIN,TOTAL 0.2 MG/DL (0.3-1.2); CALCIUM LEVEL 11.2 MG/DL (8.3-10.6); CREATININE FOR GFR 4.38 MG/DL (0.70-1.30); GLOMERULAR FILTRATION RATE 14.5 (>49); MAGNESIUM LEVEL 2.1 MG/DL (1.8-2.4); POTASSIUM SERUM 4.8 MMOL/L (3.5-5.1)
[2022-06-20] MEDS: CitaloPRAM (CeleXA) 20 MG TAB PO SCH (09:03)
[2022-06-20] MEDS: ASCORBIC ACID 500 MG TAB PO SCH (09:03)
[2022-06-20] MEDS: ATORVASTATIN 10 MG TAB PO SCH (09:03)
[2022-06-20] MEDS: MULTIVITAMINS/MINERALS THERAP 1 TAB PO SCH (09:03)
[2022-06-20] MEDS: SODIUM BICARBONATE 325 MG TAB PO SCH ×3 (09:03→20:28)
[2022-06-20 14:00] VITALS: BP 125/79
[2022-06-20 20:00] VITALS: BP 130/81
[2022-06-20] MEDS: PATIROMER SORBITEX CALCIUM 8.4 GM POWDER PACKET (VELTASSA) PO SCH (20:24)
[2022-06-21] MEDS: PIPERACILLIN/TAZOBACTAM SOD 2.25 GM in D5W MINI-BAG PLUS 50 ML IV SCH ×3 (01:44→17:19)
[2022-06-21 05:22] LABS: BASO # 0.1 10^3/uL (0.0-0.2); BASO % 0.5 % (0.0-1.0); EOS # 0.4 10^3/uL (0.0-0.5); EOS % 2.6 % (0.0-3.0); HEMATOCRIT 35.8 % (42.0-52.0); HEMOGLOBIN 10.7 g/dl (13.5-17.5); LYMPH # 1.1 10^3/uL (1.5-5.0); LYMPH % 7.7 % (24.0-44.0); MEAN CORPUSCULAR HEMOGLOBIN 27.2 pg (27.0-33.0); MEAN CORPUSCULAR HGB CONC 29.9 g/dl (32.0-36.5); MEAN CORPUSCULAR VOLUME 90.9 fl (80.0-96.0); MONO % 6.7 % (2.0-8.0); NEUTROPHILS # 11.9 10^3/uL (1.5-8.5); NEUTROPHILS % 80.9 % (36.0-66.0); PLATELET COUNT, AUTOMATED 578 10^3/uL (150-450); RED BLOOD COUNT 3.94 10^6/uL (4.30-6.10); WHITE BLOOD COUNT 14.7 10^3/uL (4.0-10.0)
[2022-06-21 05:48] LABS: ALBUMIN 2.1 G/DL (3.2-5.2); BILIRUBIN,TOTAL 0.2 MG/DL (0.3-1.2); CALCIUM LEVEL 10.8 MG/DL (8.3-10.6); CREATININE FOR GFR 3.85 MG/DL (0.70-1.30); GLOMERULAR FILTRATION RATE 16.8 (>49); MAGNESIUM LEVEL 2.1 MG/DL (1.8-2.4); POTASSIUM SERUM 4.7 MMOL/L (3.5-5.1); TOTAL PROTEIN 6.8 G/DL (5.7-8.2)
[2022-06-21 06:00] VITALS: BP 133/83
[2022-06-21] MEDS: CitaloPRAM (CeleXA) 20 MG TAB PO SCH (08:27)
[2022-06-21] MEDS: ASCORBIC ACID 500 MG TAB PO SCH (08:27)
[2022-06-21] MEDS: ATORVASTATIN 10 MG TAB PO SCH (08:27)
[2022-06-21] MEDS: MULTIVITAMINS/MINERALS THERAP 1 TAB PO SCH (08:28)
[2022-06-21] MEDS: SODIUM BICARBONATE 325 MG TAB PO SCH ×2 (08:28→17:17)
[2022-06-21 14:00] VITALS: BP 132/83
[2022-06-21] MEDS ORDERED: AMOX500T2 PO (17:08)
== END 2022-06-21 19:08 | disposition home health service (06) ==
LOC: M ED 09:01 → M ED INP 16:05 → M MSPAV 17:27
PROVIDERS: ADMIT Family Medicine; ATTEND Family Medicine
DX: N13.1 Hydronephrosis with ureteral stricture, not elsewhere classified (principal); N13.4 Hydroureter; Z85.51 Personal history of malignant neoplasm of bladder; N39.0 Urinary tract infection, site not specified; B95.2 Enterococcus as the cause of diseases classified elsewhere; D72.829 Elevated white blood cell count, unspecified; N17.9 Acute kidney failure, unspecified; N18.32 Chronic kidney disease, stage 3b; E87.5 Hyperkalemia; E83.52 Hypercalcemia; D64.9 Anemia, unspecified; E87.1 Hypo-osmolality and hyponatremia; E87.20 Acidosis, unspecified; F17.210 Nicotine dependence, cigarettes, uncomplicated; Z79.899 Other long term (current) drug therapy
CPT/HCPCS: 36415; 50432; 71045; 74176; 80048; 80053; 80076; 81000; 81015; 83690; 83735; 84145; 85025; 85027; 85610; 85730; 87088; 87184; 87631; 93005; 93041; 96365; 96376; 99152; 99153; 99285; C1729; C1769; C1894; G0378; J0690; J1200; J2250; J2543; J3010; Q9967

== ENCOUNTER → 2022-06-24 | Outpatient (REF) | payer MEDICARE ==
[~2022-06-24] MED LIST changes: +AMOX500T2 PO; +SODI650T PO; +VELT1POW PO
[2022-06-24 19:31] LABS: ALBUMIN 2.5 G/DL (3.2-5.2); CALCIUM LEVEL 11.1 MG/DL (8.3-10.6); CREATININE FOR GFR 2.58 MG/DL (0.70-1.30); GLOMERULAR FILTRATION RATE 26.7 (>49); PHOSPHORUS LEVEL 3.4 MG/DL (2.4-5.1); POTASSIUM SERUM 5.7 MMOL/L (3.5-5.1)
== END ==
LOC: M LABDRAWC 17:42
PROVIDERS: ATTEND Internal Medicine Nephrology
DX: N17.9 Acute kidney failure, unspecified (principal); N18.4 Chronic kidney disease, stage 4 (severe); E87.5 Hyperkalemia

== ENCOUNTER 2022-07-08 16:31 | Inpatient (IN) | payer MEDICARE ==
[~2022-07-08] VITALS: Ht 175.3 cm; Wt 67.7 kg
[~2022-07-08 16:31] MED LIST changes: +CALCITONIN SALMON (MIACALCIN) 400INTERNATIONAL UNITS/2ML VIAL SQ SCH
[2022-07-08 18:24] LABS: BASO # 0.1 10^3/uL (0.0-0.2); BASO % 0.4 % (0.0-1.0); EOS # 0.4 10^3/uL (0.0-0.5); EOS % 2.3 % (0.0-3.0); HEMOGLOBIN 10.1 g/dl (13.5-17.5); LYMPH # 1.4 10^3/uL (1.5-5.0); LYMPH % 8.9 % (24.0-44.0); MEAN CORPUSCULAR HEMOGLOBIN 27.3 pg (27.0-33.0); MEAN CORPUSCULAR HGB CONC 29.7 g/dl (32.0-36.5); MEAN CORPUSCULAR VOLUME 91.9 fl (80.0-96.0); MONO # 1.1 10^3/uL (0.0-0.8); MONO % 6.7 % (2.0-8.0); NEUTROPHILS # 13.2 10^3/uL (1.5-8.5); NEUTROPHILS % 81.1 % (36.0-66.0); PLATELET COUNT, AUTOMATED 677 10^3/uL (150-450); WHITE BLOOD COUNT 16.2 10^3/uL (4.0-10.0)
[2022-07-08 18:44] LABS: CK-MB VALUE MASS < 1.0 NG/ML (<3.6)
[2022-07-08 18:45] LABS: ETHYL ALCOHOL (ETHANOL) 0.004 % (0.000-0.010)
[2022-07-08 18:46] LABS: CPK CREATINE PHOSPHOKINASE 21 U/L (46-171); MB/CK RELATIVE INDEX 4.76 (< OR =4)
[2022-07-08 18:48] LABS: FREE T4 1.07 NG/DL (0.89-1.76); THYROID STIMULATING HORMONE 1.379 uIU/ML (0.55-4.78)
[2022-07-08 18:51] LABS: ALBUMIN 2.6 G/DL (3.2-5.2); ALKALINE PHOSPHATASE 97 U/L (46-116); ALT/SGPT 17 U/L (7.0-40); AST/SGOT 12 U/L (<34); BILIRUBIN,DIRECT < 0.1 MG/DL (<0.4); BILIRUBIN,TOTAL 0.2 MG/DL (0.3-1.2); BLOOD UREA NITROGEN 37 MG/DL (9-23); CALCIUM LEVEL 14.5 MG/DL (8.3-10.6); CARBON DIOXIDE LEVEL 31 MMOL/L (20-31); CHLORIDE LEVEL 100 MMOL/L (98-107); CREATININE FOR GFR 2.21 MG/DL (0.70-1.30); GLOMERULAR FILTRATION RATE 31.9 (>49); GLUCOSE, FASTING 97 MG/DL (74-106); MAGNESIUM LEVEL 2.2 MG/DL (1.8-2.4); POTASSIUM SERUM 3.2 MMOL/L (3.5-5.1); PTH INTACT < 6.3 PG/ML (18.5-88.0); SODIUM LEVEL 137 MMOL/L (136-145); TOTAL PROTEIN 7.6 G/DL (5.7-8.2)
[2022-07-08] MEDS ORDERED: NS 1,000 ML IV ONE (19:25)
[2022-07-08] MEDS ORDERED: CALCITONIN SALMON (MIACALCIN) 400INTERNATIONAL UNITS/2ML VIAL SC ONE (19:25)
[2022-07-08] MEDS ORDERED: ZOLEDRONIC ACID 4 MG in IV 1 EA IV ONE (19:25)
[2022-07-08 19:52] LABS: RSV AMPLIFICATION NEGATIVE (NEGATIVE)
[2022-07-08] MEDS ORDERED: ACETAMINOPHEN TAB 650MG DOSE (2X325MG) PO PRN (20:45)
[2022-07-08] MEDS ORDERED: NS 1,000 ML IV SCH (21:10)
[2022-07-08] MEDS ORDERED: HOME MED LIST COMPLETE! XX SCH (22:25)
[2022-07-08] MEDS ORDERED: DOCUSATE SODIUM 100MG CAPSULE PO PRN (23:15)
[2022-07-09] VITALS (7 sets, daily range): BP systolic 153–178; BP diastolic 76–86
[2022-07-09 00:03] LABS: CALCIUM LEVEL 14.4 MG/DL (8.3-10.6); CREATININE FOR GFR 2.15 MG/DL (0.70-1.30); GLOMERULAR FILTRATION RATE 32.9 (>49); MAGNESIUM LEVEL 2.2 MG/DL (1.8-2.4); POTASSIUM SERUM 3.5 MMOL/L (3.5-5.1)
[2022-07-09] MEDS: hydrALAZINE 20MG/ML 1ML VIAL IV PRN ×2 (00:44→21:04)
[2022-07-09] MEDS ORDERED: hydrALAZINE 20MG/ML 1ML VIAL IV ONE (02:00)
[2022-07-09] MEDS ORDERED: CALCITONIN SALMON (MIACALCIN) 400INTERNATIONAL UNITS/2ML VIAL SQ SCH ×2 (02:00→09:00)
[2022-07-09] MEDS: RAMELTEON 8 MG TAB (ROZEREM) PO PRN (02:11)
[2022-07-09 05:56] LABS: ALBUMIN 2.1 G/DL (3.2-5.2); BILIRUBIN,TOTAL 0.2 MG/DL (0.3-1.2); CALCIUM LEVEL 12.5 MG/DL (8.3-10.6); CREATININE FOR GFR 2.03 MG/DL (0.70-1.30); GLOMERULAR FILTRATION RATE 35.2 (>49); HEMOGLOBIN 9.5 g/dl (13.5-17.5); MEAN CORPUSCULAR HEMOGLOBIN 27.4 pg (27.0-33.0); MEAN CORPUSCULAR HGB CONC 29.7 g/dl (32.0-36.5); MEAN CORPUSCULAR VOLUME 92.2 fl (80.0-96.0); PLATELET COUNT, AUTOMATED 627 10^3/uL (150-450); POTASSIUM SERUM 3.2 MMOL/L (3.5-5.1); RED BLOOD COUNT 3.47 10^6/uL (4.30-6.10); TOTAL PROTEIN 6.3 G/DL (5.7-8.2); WHITE BLOOD COUNT 15.3 10^3/uL (4.0-10.0)
[2022-07-09] MEDS: CALCITONIN SALMON (MIACALCIN) 400INTERNATIONAL UNITS/2ML VIAL SQ SCH ×3 (06:33→17:47)
[2022-07-09] MEDS: CitaloPRAM (CeleXA) 20 MG TAB PO SCH (08:08)
[2022-07-09] MEDS: ATORVASTATIN 10 MG TAB PO SCH (08:08)
[2022-07-09] MEDS: ASCORBIC ACID 500 MG TAB PO SCH (08:08)
[2022-07-09] MEDS: HEPARIN SOD (PORCINE) 5000UNITS/ML 1ML VIAL/SYRINGE SQ SCH ×2 (08:09→20:27)
[2022-07-09] MEDS ORDERED: SODIUM BICARBONATE 325 MG TAB PO SCH (09:00)
[2022-07-09] MEDS ORDERED: MULTIVITAMINS/MINERALS THERAP 1 TAB PO SCH (09:00)
[2022-07-09] MEDS: KCL 20MEQ in NS 1000ML 1,000 ML IV SCH ×3 (11:13→18:45)
[2022-07-10] MEDS: KCL 20MEQ in NS 1000ML 1,000 ML IV SCH ×4 (01:09→22:07)
[2022-07-10] MEDS: ONDANSETRON 4MG ORAL DISINTEGRATING TAB PO PRN (03:24)
[2022-07-10 03:30] VITALS: BP 154/76
[2022-07-10 07:15] LABS: MEAN CORPUSCULAR HEMOGLOBIN 27.4 pg (27.0-33.0); MEAN CORPUSCULAR VOLUME 94.5 fl (80.0-96.0); PLATELET COUNT, AUTOMATED 624 10^3/uL (150-450); RED BLOOD COUNT 3.28 10^6/uL (4.30-6.10); WHITE BLOOD COUNT 13.5 10^3/uL (4.0-10.0)
[2022-07-10 07:40] LABS: ALBUMIN 2.1 G/DL (3.2-5.2); ALKALINE PHOSPHATASE 75 U/L (46-116); ALT/SGPT < 9 U/L (7.0-40); AST/SGOT 12 U/L (<34); BILIRUBIN,TOTAL < 0.2 MG/DL (0.3-1.2); BLOOD UREA NITROGEN 36 MG/DL (9-23); CALCIUM LEVEL 11.4 MG/DL (8.3-10.6); CARBON DIOXIDE LEVEL 25 MMOL/L (20-31); CHLORIDE LEVEL 112 MMOL/L (98-107); CREATININE FOR GFR 2.19 MG/DL (0.70-1.30); GLOMERULAR FILTRATION RATE 32.2 (>49); GLUCOSE, FASTING 77 MG/DL (74-106); IRON (FE) 10 UG/DL (65-175); PERCENT SATURATION 5.3 % (19.7-50.0); POTASSIUM SERUM 3.7 MMOL/L (3.5-5.1); SODIUM LEVEL 146 MMOL/L (136-145); TOTAL IRON BINDING CAPACITY 190 UG/DL (250-425); TOTAL PROTEIN 6.1 G/DL (5.7-8.2)
[2022-07-10 07:43] LABS: FERRITIN 1374.2 NG/ML (10.5-307.3)
[2022-07-10 08:04] VITALS: BP 161/85
[2022-07-10] MEDS: ASCORBIC ACID 500 MG TAB PO SCH (09:07)
[2022-07-10] MEDS: CitaloPRAM (CeleXA) 20 MG TAB PO SCH (09:07)
[2022-07-10] MEDS: HEPARIN SOD (PORCINE) 5000UNITS/ML 1ML VIAL/SYRINGE SQ SCH ×2 (09:08→20:19)
[2022-07-10] MEDS: ATORVASTATIN 10 MG TAB PO SCH (09:08)
[2022-07-10 11:54] VITALS: BP 167/78
[2022-07-10 15:51] VITALS: BP 157/82
[2022-07-10 19:40] VITALS: BP 151/96
[2022-07-11] VITALS (8 sets, daily range): BP systolic 148–200; BP diastolic 68–98
[2022-07-11] MEDS: RAMELTEON 8 MG TAB (ROZEREM) PO PRN ×2 (01:59→21:01)
[2022-07-11] MEDS: KCL 20MEQ in NS 1000ML 1,000 ML IV SCH (05:00)
[2022-07-11 06:51] LABS: HEMATOCRIT 29.6 % (42.0-52.0); HEMOGLOBIN 8.5 g/dl (13.5-17.5); MEAN CORPUSCULAR HEMOGLOBIN 27.4 pg (27.0-33.0); MEAN CORPUSCULAR HGB CONC 28.7 g/dl (32.0-36.5); MEAN CORPUSCULAR VOLUME 95.5 fl (80.0-96.0); PLATELET COUNT, AUTOMATED 584 10^3/uL (150-450); WHITE BLOOD COUNT 15.6 10^3/uL (4.0-10.0)
[2022-07-11 07:16] LABS: ALBUMIN 2.2 G/DL (3.2-5.2); ALKALINE PHOSPHATASE 78 U/L (46-116); ALT/SGPT 12 U/L (7.0-40); AST/SGOT 15 U/L (<34); BILIRUBIN,TOTAL < 0.2 MG/DL (0.3-1.2); BLOOD UREA NITROGEN 37 MG/DL (9-23); CALCIUM LEVEL 10.5 MG/DL (8.3-10.6); CARBON DIOXIDE LEVEL 22 MMOL/L (20-31); CHLORIDE LEVEL 115 MMOL/L (98-107); GLUCOSE, FASTING 74 MG/DL (74-106); POTASSIUM SERUM 4.7 MMOL/L (3.5-5.1); SODIUM LEVEL 144 MMOL/L (136-145); TOTAL PROTEIN 6.1 G/DL (5.7-8.2)
[2022-07-11] MEDS: ASCORBIC ACID 500 MG TAB PO SCH (08:06)
[2022-07-11] MEDS: CitaloPRAM (CeleXA) 20 MG TAB PO SCH (08:06)
[2022-07-11] MEDS: HEPARIN SOD (PORCINE) 5000UNITS/ML 1ML VIAL/SYRINGE SQ SCH ×2 (08:06→21:01)
[2022-07-11] MEDS: ATORVASTATIN 10 MG TAB PO SCH (08:06)
[2022-07-11] MEDS: hydrALAZINE 20MG/ML 1ML VIAL IV PRN ×2 (08:07→21:02)
[2022-07-11] MEDS: NS 1,000 ML IV SCH ×2 (10:27→17:45)
[2022-07-12] VITALS (7 sets, daily range): BP systolic 155–179; BP diastolic 74–98
[2022-07-12] MEDS: NS 1,000 ML IV SCH ×2 (00:58→09:15)
[2022-07-12 04:43] LABS: HEMATOCRIT 30.1 % (42.0-52.0); MEAN CORPUSCULAR HEMOGLOBIN 27.5 pg (27.0-33.0); MEAN CORPUSCULAR HGB CONC 29.9 g/dl (32.0-36.5); PLATELET COUNT, AUTOMATED 615 10^3/uL (150-450); RED BLOOD COUNT 3.27 10^6/uL (4.30-6.10); WHITE BLOOD COUNT 17.7 10^3/uL (4.0-10.0)
[2022-07-12 05:13] LABS: ALBUMIN 2.1 G/DL (3.2-5.2); BILIRUBIN,TOTAL 0.2 MG/DL (0.3-1.2); CALCIUM LEVEL 9.5 MG/DL (8.3-10.6); CREATININE FOR GFR 2.16 MG/DL (0.70-1.30); GLOMERULAR FILTRATION RATE 32.7 (>49); POTASSIUM SERUM 3.5 MMOL/L (3.5-5.1)
[2022-07-12] MEDS: hydrALAZINE 20MG/ML 1ML VIAL IV PRN (05:31)
[2022-07-12] MEDS: CitaloPRAM (CeleXA) 20 MG TAB PO SCH (11:14)
[2022-07-12] MEDS: ASCORBIC ACID 500 MG TAB PO SCH (11:15)
[2022-07-12] MEDS: HEPARIN SOD (PORCINE) 5000UNITS/ML 1ML VIAL/SYRINGE SQ SCH ×2 (11:15→21:36)
[2022-07-12] MEDS: ATORVASTATIN 10 MG TAB PO SCH (11:15)
[2022-07-12] MEDS: **hydrALAZINE HCL** 25 MG TAB PO SCH ×3 (11:21→21:36)
[2022-07-12] MEDS: SODIUM BICARBONATE 50 MEQ in NS 0.45% 1,000 ML IV SCH (13:40)
[2022-07-12] MEDS: ONDANSETRON 4MG ORAL DISINTEGRATING TAB PO PRN (13:40)
[2022-07-13] MEDS: SODIUM BICARBONATE 50 MEQ in NS 0.45% 1,000 ML IV SCH (00:28)
[2022-07-13 03:35] LABS: HEMATOCRIT 28.1 % (42.0-52.0); HEMOGLOBIN 8.2 g/dl (13.5-17.5); MEAN CORPUSCULAR HEMOGLOBIN 26.6 pg (27.0-33.0); MEAN CORPUSCULAR HGB CONC 29.2 g/dl (32.0-36.5); MEAN CORPUSCULAR VOLUME 91.2 fl (80.0-96.0); PLATELET COUNT, AUTOMATED 576 10^3/uL (150-450); RED BLOOD COUNT 3.08 10^6/uL (4.30-6.10); WHITE BLOOD COUNT 15.4 10^3/uL (4.0-10.0)
[2022-07-13 03:59] LABS: BILIRUBIN,TOTAL 0.2 MG/DL (0.3-1.2); CALCIUM LEVEL 8.4 MG/DL (8.3-10.6); CREATININE FOR GFR 2.26 MG/DL (0.70-1.30); GLOMERULAR FILTRATION RATE 31.1 (>49); POTASSIUM SERUM 3.4 MMOL/L (3.5-5.1); TOTAL PROTEIN 5.7 G/DL (5.7-8.2)
[2022-07-13 04:10] VITALS: BP 180/74
[2022-07-13] MEDS: hydrALAZINE 20MG/ML 1ML VIAL IV PRN (04:23)
[2022-07-13] MEDS ORDERED: POTASSIUM CHLORIDE 10MEQ SR TABLET PO ONE (08:00)
[2022-07-13 08:24] VITALS: BP 154/74
[2022-07-13] MEDS: CitaloPRAM (CeleXA) 20 MG TAB PO SCH (08:24)
[2022-07-13] MEDS: HEPARIN SOD (PORCINE) 5000UNITS/ML 1ML VIAL/SYRINGE SQ SCH ×2 (08:24→20:16)
[2022-07-13] MEDS: ATORVASTATIN 10 MG TAB PO SCH (08:24)
[2022-07-13] MEDS: ASCORBIC ACID 500 MG TAB PO SCH (08:25)
[2022-07-13] MEDS: **hydrALAZINE HCL** 25 MG TAB PO SCH ×3 (08:25→20:17)
[2022-07-13 11:19] VITALS: BP 162/83
[2022-07-13 16:00] VITALS: BP 172/78
[2022-07-13] MEDS: SODIUM BICARBONATE 325 MG TAB PO SCH (20:16)
[2022-07-13 20:37] VITALS: BP 173/83
[2022-07-14 04:42] VITALS: BP 159/72
[2022-07-14 06:14] LABS: HEMATOCRIT 28.7 % (42.0-52.0); HEMOGLOBIN 8.6 g/dl (13.5-17.5); MEAN CORPUSCULAR HEMOGLOBIN 26.9 pg (27.0-33.0); MEAN CORPUSCULAR VOLUME 89.7 fl (80.0-96.0); PLATELET COUNT, AUTOMATED 553 10^3/uL (150-450); WHITE BLOOD COUNT 14.2 10^3/uL (4.0-10.0)
[2022-07-14 07:00] LABS: ALBUMIN 2.1 G/DL (3.2-5.2); BILIRUBIN,TOTAL 0.2 MG/DL (0.3-1.2); CALCIUM LEVEL 8.5 MG/DL (8.3-10.6); CREATININE FOR GFR 2.63 MG/DL (0.70-1.30); GLOMERULAR FILTRATION RATE 26.1 (>49)
[2022-07-14 08:00] VITALS: BP 188/85
[2022-07-14] MEDS: SODIUM BICARBONATE 325 MG TAB PO SCH ×2 (09:37→20:15)
[2022-07-14] MEDS: ASCORBIC ACID 500 MG TAB PO SCH (09:38)
[2022-07-14] MEDS: POTASSIUM CHLORIDE 10MEQ SR TABLET PO SCH ×3 (09:38→20:16)
[2022-07-14] MEDS: ATORVASTATIN 10 MG TAB PO SCH (09:38)
[2022-07-14] MEDS: **hydrALAZINE HCL** 25 MG TAB PO SCH ×3 (09:38→20:16)
[2022-07-14] MEDS: CitaloPRAM (CeleXA) 20 MG TAB PO SCH (09:38)
[2022-07-14] MEDS: HEPARIN SOD (PORCINE) 5000UNITS/ML 1ML VIAL/SYRINGE SQ SCH ×2 (09:39→20:17)
[2022-07-14 12:00] VITALS: BP 160/74
[2022-07-14 15:57] VITALS: BP 170/92
[2022-07-14 20:17] VITALS: BP 167/90
[2022-07-14 20:44] VITALS: BP 163/89
[2022-07-15 06:05] VITALS: BP 162/90
[2022-07-15 06:15] LABS: HEMATOCRIT 27.5 % (42.0-52.0); HEMOGLOBIN 8.3 g/dl (13.5-17.5); MEAN CORPUSCULAR HEMOGLOBIN 27.2 pg (27.0-33.0); MEAN CORPUSCULAR HGB CONC 30.2 g/dl (32.0-36.5); MEAN CORPUSCULAR VOLUME 90.2 fl (80.0-96.0); PLATELET COUNT, AUTOMATED 520 10^3/uL (150-450); RED BLOOD COUNT 3.05 10^6/uL (4.30-6.10); WHITE BLOOD COUNT 14.7 10^3/uL (4.0-10.0)
[2022-07-15 06:43] LABS: ALBUMIN 2.1 G/DL (3.2-5.2); BILIRUBIN,TOTAL 0.2 MG/DL (0.3-1.2); CALCIUM LEVEL 8.4 MG/DL (8.3-10.6); CREATININE FOR GFR 2.9 MG/DL (0.70-1.30); GLOMERULAR FILTRATION RATE 23.3 (>49); POTASSIUM SERUM 3.2 MMOL/L (3.5-5.1); TOTAL PROTEIN 6.1 G/DL (5.7-8.2)
[2022-07-15] MEDS: SODIUM BICARBONATE 325 MG TAB PO SCH ×2 (08:56→15:50)
[2022-07-15] MEDS: **hydrALAZINE HCL** 25 MG TAB PO SCH ×2 (08:57→15:49)
[2022-07-15] MEDS: ATORVASTATIN 10 MG TAB PO SCH (08:58)
[2022-07-15] MEDS: ASCORBIC ACID 500 MG TAB PO SCH (08:58)
[2022-07-15] MEDS: CitaloPRAM (CeleXA) 20 MG TAB PO SCH (08:58)
[2022-07-15] MEDS: HEPARIN SOD (PORCINE) 5000UNITS/ML 1ML VIAL/SYRINGE SQ SCH (08:58)
[2022-07-15] MEDS ORDERED: POTASSIUM CHLORIDE 10MEQ SR TABLET PO SCH (09:00)
[2022-07-15] MEDS ORDERED: HYDR-3911 PO (12:18)
[2022-07-15] MEDS ORDERED: POTASSIUM CHLORIDE 10MEQ SR TABLET PO ONE (12:20)
[2022-07-15 15:49] VITALS: BP 164/92
== END 2022-07-15 15:56 | disposition home health service (06) | DRG 640 ==
LOC: M ED 16:31 → M ED INP 20:42 → ENRESERV 07-09 04:27 → M ICU 07-09 05:00 → M PCU 07-09 23:28 → M MSPAV 07-14 15:52
PROVIDERS: ADMIT Internal Medicine; ATTEND Internal Medicine Nephrology
DX: E83.52 Hypercalcemia (principal); G93.41 Metabolic encephalopathy; N18.4 Chronic kidney disease, stage 4 (severe); C68.0 Malignant neoplasm of urethra; E87.20 Acidosis, unspecified; E87.0 Hyperosmolality and hypernatremia; N17.9 Acute kidney failure, unspecified; C79.9 Secondary malignant neoplasm of unspecified site; I12.9 Hypertensive chronic kidney disease with stage 1 through stage 4 chronic kidney disease, or unspecified chronic kidney disease; F17.200 Nicotine dependence, unspecified, uncomplicated; E87.6 Hypokalemia; E78.5 Hyperlipidemia, unspecified; J44.9 Chronic obstructive pulmonary disease, unspecified; F41.9 Anxiety disorder, unspecified; D75.839 Thrombocytosis, unspecified; D50.9 Iron deficiency anemia, unspecified; R26.89 Other abnormalities of gait and mobility; R53.81 Other malaise; R53.1 Weakness; D72.829 Elevated white blood cell count, unspecified; R19.7 Diarrhea, unspecified; Z93.6 Other artificial openings of urinary tract status; Z79.899 Other long term (current) drug therapy

== ENCOUNTER 2022-07-16 22:23 | Inpatient (IN) | payer MEDICARE ==
[~2022-07-16] VITALS: Ht 175.3 cm; Wt 66.5 kg
[~2022-07-16 22:23] MED LIST changes: -CALCITONIN SALMON (MIACALCIN) 400INTERNATIONAL UNITS/2ML VIAL SQ SCH; +HYDR-3911 PO
[2022-07-16] MEDS ORDERED: NS 1,000 ML IV ONE ×2 (22:45→23:40)
[2022-07-16 23:01] LABS: BASO % 0.2 % (0.0-1.0); EOS # 0.1 10^3/uL (0.0-0.5); EOS % 0.3 % (0.0-3.0); HEMATOCRIT 30.2 % (42.0-52.0); HEMOGLOBIN 9.2 g/dl (13.5-17.5); LYMPH # 0.8 10^3/uL (1.5-5.0); LYMPH % 3.9 % (24.0-44.0); MEAN CORPUSCULAR HEMOGLOBIN 27.1 pg (27.0-33.0); MEAN CORPUSCULAR HGB CONC 30.5 g/dl (32.0-36.5); MEAN CORPUSCULAR VOLUME 89.1 fl (80.0-96.0); MONO # 0.9 10^3/uL (0.0-0.8); MONO % 4.4 % (2.0-8.0); NEUTROPHILS # 17.7 10^3/uL (1.5-8.5); NEUTROPHILS % 90.5 % (36.0-66.0); PLATELET COUNT, AUTOMATED 574 10^3/uL (150-450); RED BLOOD COUNT 3.39 10^6/uL (4.30-6.10); WHITE BLOOD COUNT 19.5 10^3/uL (4.0-10.0)
[2022-07-16 23:25] LABS: ALBUMIN 2.1 G/DL (3.2-5.2); BILIRUBIN,TOTAL 0.2 MG/DL (0.3-1.2); CALCIUM LEVEL 8.1 MG/DL (8.3-10.6); CREATININE FOR GFR 4.57 MG/DL (0.70-1.30); GLOMERULAR FILTRATION RATE 13.8 (>49); POTASSIUM SERUM 3.4 MMOL/L (3.5-5.1); TOTAL PROTEIN 6.3 G/DL (5.7-8.2)
[2022-07-17 00:21] LABS: AMORPHOUS SEDIMENT SMALL (NEGATIVE); APPEARANCE, URINE CLOUDY (CLEAR); BACTERIA, URINE AUTO NEGATIVE (NEGATIVE); BILIRUBIN, URINE AUTO NEGATIVE (NEGATIVE); BLOOD, URINE BLOOD 1+ (NEGATIVE); COLOR, URINE AMBER (YELLOW); GLUCOSE, URINE (UA) AUTO 2+ mg/dL (NEGATIVE); KETONE, URINE AUTO 1+ mg/dL (NEGATIVE); LEUKOCYTE ESTERASE, URINE AUTO 3+ (NEGATIVE); MUCUS, URINE SMALL (NEGATIVE); NITRITE, URINE AUTO NEGATIVE (NEGATIVE); PROTEIN, URINE AUTO 3+ mg/dL (NEGATIVE); RBC, URINE AUTO 26 /HPF (0-3); SPECIFIC GRAVITY URINE AUTO 1.017 (1.002-1.035); SQUAMOUS EPITHELIAL CELL UR AU 0 /HPF (0-6); UROBILINOGEN, URINE AUTO 0.2 mg/dL (0.0-2.0); WBC, URINE AUTO TNTC /HPF (0-3)
[2022-07-17] MEDS ORDERED: ONDANSETRON 4MG 2ML VIAL IV PRN (00:45)
[2022-07-17] MEDS ORDERED: MORPHINE 4 MG/ML 1ML VIAL IV PRN (00:55)
[2022-07-17] MEDS ORDERED: MORPHINE 2 MG/ML 1ML VIAL IV PRN (00:55)
[2022-07-17] MEDS: PIPERACILLIN/TAZOBACTAM SOD 2.25 GM in D5W MINI-BAG PLUS 50 ML IV SCH ×4 (01:22→19:05)
[2022-07-17] MEDS ORDERED: POTASSIUM CHLORIDE INJ 20 MEQ in LR 1,000 ML IV SCH (01:30)
[2022-07-17 02:19] LABS: CREATININE,RANDOM URINE 72.2 MG/DL
[2022-07-17 02:22] LABS: TOTAL PROTEIN,RANDOM URINE 904.4 MG/DL (0.0-14.0)
[2022-07-17] MEDS ORDERED: HYDR-3911 PO (06:11)
[2022-07-17] MEDS ORDERED: HOME MED LIST COMPLETE! XX SCH (06:15)
[2022-07-17 06:19] LABS: HEMATOCRIT 28.6 % (42.0-52.0); HEMOGLOBIN 8.7 g/dl (13.5-17.5); MEAN CORPUSCULAR HEMOGLOBIN 27.4 pg (27.0-33.0); MEAN CORPUSCULAR HGB CONC 30.4 g/dl (32.0-36.5); MEAN CORPUSCULAR VOLUME 90.2 fl (80.0-96.0); PLATELET COUNT, AUTOMATED 480 10^3/uL (150-450); RED BLOOD COUNT 3.17 10^6/uL (4.30-6.10); WHITE BLOOD COUNT 17.4 10^3/uL (4.0-10.0)
[2022-07-17 06:52] LABS: ALBUMIN 1.9 G/DL (3.2-5.2); ALKALINE PHOSPHATASE 89 U/L (46-116); ALT/SGPT < 9 U/L (7.0-40); AST/SGOT 10 U/L (<34); BILIRUBIN,TOTAL 0.2 MG/DL (0.3-1.2); BLOOD UREA NITROGEN 46 MG/DL (9-23); CARBON DIOXIDE LEVEL 21 MMOL/L (20-31); CHLORIDE LEVEL 115 MMOL/L (98-107); CREATININE FOR GFR 4.73 MG/DL (0.70-1.30); GLOMERULAR FILTRATION RATE 13.2 (>49); GLUCOSE, FASTING 98 MG/DL (74-106); MAGNESIUM LEVEL 1.7 MG/DL (1.8-2.4); SODIUM LEVEL 150 MMOL/L (136-145); TOTAL PROTEIN 5.7 G/DL (5.7-8.2)
[2022-07-17] MEDS: PANTOPRAZOLE 40MG VIAL IV SCH (07:22)
[2022-07-17] MEDS ORDERED: BISACODYL 10MG SUPP PR ONE ×2 (07:30→10:55)
[2022-07-17] MEDS: MAG SULF 1GM/100ML (MAG RUN) 1 GM in IV 1 EA IV SCH ×2 (08:11→09:19)
[2022-07-17] MEDS: KCL 10MEQ/100ML SWI (KRUN) 10 MEQ in IV 1 EA IV SCH ×4 (08:58→12:07)
[2022-07-17 14:00] VITALS: BP 133/74
[2022-07-17] MEDS: POTASSIUM CHLORIDE IV SCH (14:57)
[2022-07-17] MEDS: [UNRECOGNIZED DRUG - OTHER] IV SCH (14:57)
[2022-07-17] MEDS: SODIUM CHLORIDE IV SCH (14:57)
[2022-07-17 16:00] VITALS: O2SAT 96
[2022-07-17 19:12] LABS: CALCIUM LEVEL 7.4 MG/DL (8.3-10.6); CREATININE FOR GFR 5.01 MG/DL (0.70-1.30); GLOMERULAR FILTRATION RATE 12.4 (>49); POTASSIUM SERUM 3.3 MMOL/L (3.5-5.1)
[2022-07-17 20:00] VITALS: BP 118/61
[2022-07-17] MEDS ORDERED: KCL 10MEQ/100ML SWI (KRUN) 10 MEQ in IV 1 EA IV ONE (20:10)
[2022-07-18] MEDS: PIPERACILLIN/TAZOBACTAM SOD 2.25 GM in D5W MINI-BAG PLUS 50 ML IV SCH ×4 (01:09→18:44)
[2022-07-18] MEDS: SODIUM CHLORIDE IV SCH (02:29)
[2022-07-18] MEDS: POTASSIUM CHLORIDE IV SCH (02:29)
[2022-07-18] MEDS: [UNRECOGNIZED DRUG - OTHER] IV SCH (02:29)
[2022-07-18 05:59] LABS: BASO # 0.1 10^3/uL (0.0-0.2); BASO % 0.3 % (0.0-1.0); EOS % 5.5 % (0.0-3.0); HEMATOCRIT 28.2 % (42.0-52.0); HEMOGLOBIN 8.4 g/dl (13.5-17.5); LYMPH # 1.1 10^3/uL (1.5-5.0); LYMPH % 6.3 % (24.0-44.0); MEAN CORPUSCULAR HEMOGLOBIN 27.1 pg (27.0-33.0); MEAN CORPUSCULAR HGB CONC 29.8 g/dl (32.0-36.5); MONO # 0.8 10^3/uL (0.0-0.8); MONO % 4.7 % (2.0-8.0); NEUTROPHILS # 14.6 10^3/uL (1.5-8.5); NEUTROPHILS % 82.1 % (36.0-66.0); PLATELET COUNT, AUTOMATED 464 10^3/uL (150-450); WHITE BLOOD COUNT 17.8 10^3/uL (4.0-10.0)
[2022-07-18 06:00] VITALS: BP 138/69
[2022-07-18 06:28] LABS: ALBUMIN 1.8 G/DL (3.2-5.2); ALKALINE PHOSPHATASE 102 U/L (46-116); ALT/SGPT < 9 U/L (7.0-40); AST/SGOT 13 U/L (<34); BILIRUBIN,TOTAL 0.2 MG/DL (0.3-1.2); BLOOD UREA NITROGEN 57 MG/DL (9-23); CALCIUM LEVEL 7.2 MG/DL (8.3-10.6); CARBON DIOXIDE LEVEL 18 MMOL/L (20-31); CHLORIDE LEVEL 112 MMOL/L (98-107); CREATININE FOR GFR 5.34 MG/DL (0.70-1.30); GLOMERULAR FILTRATION RATE 11.5 (>49); GLUCOSE, FASTING 75 MG/DL (74-106); POTASSIUM SERUM 3.7 MMOL/L (3.5-5.1); SODIUM LEVEL 145 MMOL/L (136-145); TOTAL PROTEIN 5.5 G/DL (5.7-8.2)
[2022-07-18] MEDS: PANTOPRAZOLE 40MG VIAL IV SCH (08:09)
[2022-07-18 09:00] VITALS: O2SAT 97
[2022-07-18] MEDS: SODIUM BICARBONATE 100 MEQ in KCL 20MEQ IN D5W 1000ML 1,000 ML IV SCH ×4 (11:46→22:07)
[2022-07-18] MEDS ORDERED: SODIUM BICARBONATE 100 MEQ in KCL 20MEQ IN D5W 1000ML 1,000 ML IV SCH ×2 (12:00)
[2022-07-18 14:00] VITALS: BP 139/72
[2022-07-18 21:41] VITALS: BP 123/71
[2022-07-19] MEDS: PIPERACILLIN/TAZOBACTAM SOD 2.25 GM in D5W MINI-BAG PLUS 50 ML IV SCH ×4 (00:55→18:22)
[2022-07-19 05:33] VITALS: BP 122/71
[2022-07-19 06:05] LABS: BASO % 0.2 % (0.0-1.0); EOS # 0.7 10^3/uL (0.0-0.5); EOS % 3.6 % (0.0-3.0); HEMATOCRIT 24.5 % (42.0-52.0); HEMOGLOBIN 7.6 g/dl (13.5-17.5); LYMPH # 1.1 10^3/uL (1.5-5.0); LYMPH % 5.5 % (24.0-44.0); MEAN CORPUSCULAR VOLUME 86.9 fl (80.0-96.0); MONO # 0.9 10^3/uL (0.0-0.8); MONO % 4.7 % (2.0-8.0); NEUTROPHILS # 16.4 10^3/uL (1.5-8.5); NEUTROPHILS % 84.2 % (36.0-66.0); PLATELET COUNT, AUTOMATED 446 10^3/uL (150-450); RED BLOOD COUNT 2.82 10^6/uL (4.30-6.10); WHITE BLOOD COUNT 19.4 10^3/uL (4.0-10.0)
[2022-07-19 06:32] LABS: ALBUMIN 1.5 G/DL (3.2-5.2); ALKALINE PHOSPHATASE 100 U/L (46-116); ALT/SGPT < 9 U/L (7.0-40); AST/SGOT < 8 U/L (<34); BILIRUBIN,TOTAL 0.2 MG/DL (0.3-1.2); BLOOD UREA NITROGEN 61 MG/DL (9-23); CALCIUM LEVEL 6.4 MG/DL (8.3-10.6); CARBON DIOXIDE LEVEL 21 MMOL/L (20-31); CHLORIDE LEVEL 109 MMOL/L (98-107); CREATININE FOR GFR 5.75 MG/DL (0.70-1.30); GLOMERULAR FILTRATION RATE 10.6 (>49); GLUCOSE, FASTING 124 MG/DL (74-106); MAGNESIUM LEVEL 1.8 MG/DL (1.8-2.4); POTASSIUM SERUM 3.1 MMOL/L (3.5-5.1); SODIUM LEVEL 142 MMOL/L (136-145)
[2022-07-19] MEDS ORDERED: KCL 10MEQ/100ML SWI (KRUN) 10 MEQ in IV 1 EA IV ONE ×2 (07:20→09:00)
[2022-07-19] MEDS: PANTOPRAZOLE 40MG VIAL IV SCH (08:37)
[2022-07-19] MEDS: SODIUM BICARBONATE 100 MEQ in KCL 20MEQ IN D5W 1000ML 1,000 ML IV SCH ×4 (09:56→21:53)
[2022-07-19] MEDS: ATORVASTATIN 10 MG TAB PO SCH (09:58)
[2022-07-19] MEDS: CitaloPRAM (CeleXA) 20 MG TAB PO SCH (09:58)
[2022-07-19 10:43] LABS: IRON (FE) 26 UG/DL (65-175); PERCENT SATURATION 19.7 % (19.7-50.0); TOTAL IRON BINDING CAPACITY 132 UG/DL (250-425)
[2022-07-19 10:45] LABS: FERRITIN 1200.8 NG/ML (10.5-307.3)
[2022-07-19 14:00] VITALS: BP 123/71
[2022-07-19 16:05] LABS: CREATININE FOR GFR 5.84 MG/DL (0.70-1.30); GLOMERULAR FILTRATION RATE 10.4 (>49); MAGNESIUM LEVEL 1.7 MG/DL (1.8-2.4); POTASSIUM SERUM 3.2 MMOL/L (3.5-5.1)
[2022-07-19] MEDS ORDERED: POTASSIUM CHLORIDE 10% LIQ 20MEQ/15ML UDC PO ONE (16:15)
[2022-07-19 19:29] VITALS: BP 124/72
[2022-07-20] MEDS: PIPERACILLIN/TAZOBACTAM SOD 2.25 GM in D5W MINI-BAG PLUS 50 ML IV SCH ×4 (00:28→19:31)
[2022-07-20 05:46] VITALS: BP 126/73
[2022-07-20 06:14] LABS: BASO # 0.1 10^3/uL (0.0-0.2); BASO % 0.3 % (0.0-1.0); EOS # 0.5 10^3/uL (0.0-0.5); EOS % 2.3 % (0.0-3.0); LYMPH # 1.4 10^3/uL (1.5-5.0); LYMPH % 7.3 % (24.0-44.0); MEAN CORPUSCULAR HEMOGLOBIN 27.5 pg (27.0-33.0); MEAN CORPUSCULAR VOLUME 85.9 fl (80.0-96.0); MONO # 1.1 10^3/uL (0.0-0.8); MONO % 5.4 % (2.0-8.0); NEUTROPHILS # 16.1 10^3/uL (1.5-8.5); NEUTROPHILS % 81.7 % (36.0-66.0); PLATELET COUNT, AUTOMATED 444 10^3/uL (150-450); RED BLOOD COUNT 2.91 10^6/uL (4.30-6.10); WHITE BLOOD COUNT 19.7 10^3/uL (4.0-10.0)
[2022-07-20 06:36] LABS: ALBUMIN 1.5 G/DL (3.2-5.2); ALKALINE PHOSPHATASE 105 U/L (46-116); ALT/SGPT < 9 U/L (7.0-40); AST/SGOT 8 U/L (<34); BILIRUBIN,TOTAL 0.2 MG/DL (0.3-1.2); BLOOD UREA NITROGEN 63 MG/DL (9-23); CALCIUM LEVEL 6.5 MG/DL (8.3-10.6); CARBON DIOXIDE LEVEL 22 MMOL/L (20-31); CHLORIDE LEVEL 106 MMOL/L (98-107); CREATININE FOR GFR 6.02 MG/DL (0.70-1.30); GLUCOSE, FASTING 108 MG/DL (74-106); MAGNESIUM LEVEL 1.8 MG/DL (1.8-2.4); POTASSIUM SERUM 3.2 MMOL/L (3.5-5.1); SODIUM LEVEL 141 MMOL/L (136-145); TOTAL PROTEIN 5.1 G/DL (5.7-8.2)
[2022-07-20] MEDS: CitaloPRAM (CeleXA) 20 MG TAB PO SCH (08:53)
[2022-07-20] MEDS: ATORVASTATIN 10 MG TAB PO SCH (08:53)
[2022-07-20] MEDS: PANTOPRAZOLE 40MG VIAL IV SCH (08:53)
[2022-07-20] MEDS: SODIUM BICARBONATE 100 MEQ in KCL 20MEQ IN D5W 1000ML 1,000 ML IV SCH ×4 (08:54→19:45)
[2022-07-20] MEDS ORDERED: POTASSIUM CHLORIDE 10MEQ SR TABLET PO ONE (08:55)
[2022-07-20] MEDS ORDERED: POTASSIUM CHLORIDE 10% LIQ 20MEQ/15ML UDC PO ONE (09:00)
[2022-07-20 14:00] VITALS: BP 128/74
[2022-07-20 21:00] VITALS: BP 146/89
[2022-07-21] MEDS: PIPERACILLIN/TAZOBACTAM SOD 2.25 GM in D5W MINI-BAG PLUS 50 ML IV SCH ×4 (00:21→18:31)
[2022-07-21 05:09] LABS: BASO # 0.1 10^3/uL (0.0-0.2); BASO % 0.2 % (0.0-1.0); EOS # 0.5 10^3/uL (0.0-0.5); EOS % 2.2 % (0.0-3.0); HEMATOCRIT 25.8 % (42.0-52.0); LYMPH # 1.5 10^3/uL (1.5-5.0); MEAN CORPUSCULAR HEMOGLOBIN 26.7 pg (27.0-33.0); MONO # 1.3 10^3/uL (0.0-0.8); MONO % 6.1 % (2.0-8.0); PLATELET COUNT, AUTOMATED 449 10^3/uL (150-450)
[2022-07-21] MEDS: SODIUM BICARBONATE 100 MEQ in KCL 20MEQ IN D5W 1000ML 1,000 ML IV SCH ×4 (05:39→16:35)
[2022-07-21 05:43] LABS: ALBUMIN 1.5 G/DL (3.2-5.2); ALKALINE PHOSPHATASE 111 U/L (46-116); ALT/SGPT < 9 U/L (7.0-40); AST/SGOT 10 U/L (<34); BILIRUBIN,TOTAL 0.2 MG/DL (0.3-1.2); BLOOD UREA NITROGEN 64 MG/DL (9-23); CALCIUM LEVEL 6.1 MG/DL (8.3-10.6); CARBON DIOXIDE LEVEL 25 MMOL/L (20-31); CHLORIDE LEVEL 106 MMOL/L (98-107); CREATININE FOR GFR 6.34 MG/DL (0.70-1.30); GLOMERULAR FILTRATION RATE 9.4 (>49); GLUCOSE, FASTING 110 MG/DL (74-106); MAGNESIUM LEVEL 1.7 MG/DL (1.8-2.4); POTASSIUM SERUM 3.2 MMOL/L (3.5-5.1); SODIUM LEVEL 142 MMOL/L (136-145); TOTAL PROTEIN 5.1 G/DL (5.7-8.2)
[2022-07-21 06:00] VITALS: BP 137/75
[2022-07-21] MEDS: CitaloPRAM (CeleXA) 20 MG TAB PO SCH (08:44)
[2022-07-21] MEDS: ATORVASTATIN 10 MG TAB PO SCH (08:44)
[2022-07-21] MEDS: PANTOPRAZOLE 40MG VIAL IV SCH (08:44)
[2022-07-21] MEDS ORDERED: POTASSIUM CHLORIDE 10% LIQ 20MEQ/15ML UDC PO ONE (11:10)
[2022-07-21 14:00] VITALS: BP 130/72
[2022-07-21 19:58] LABS: CLOSTRIDIUM DIFFICILE PCR POSITIVE (NEGATIVE)
[2022-07-21 20:00] VITALS: BP 144/87
[2022-07-21] MEDS ORDERED: RAMELTEON 8 MG TAB (ROZEREM) PO PRN (23:05)
[2022-07-22] MEDS: PIPERACILLIN/TAZOBACTAM SOD 2.25 GM in D5W MINI-BAG PLUS 50 ML IV SCH ×2 (00:40→06:32)
[2022-07-22] MEDS: SODIUM BICARBONATE 100 MEQ in KCL 20MEQ IN D5W 1000ML 1,000 ML IV SCH ×2 (04:04)
[2022-07-22 06:00] VITALS: BP 149/85
[2022-07-22 07:37] LABS: BASO # 0.1 10^3/uL (0.0-0.2); BASO % 0.4 % (0.0-1.0); EOS # 0.5 10^3/uL (0.0-0.5); EOS % 2.3 % (0.0-3.0); HEMATOCRIT 24.5 % (42.0-52.0); HEMOGLOBIN 7.8 g/dl (13.5-17.5); LYMPH # 1.4 10^3/uL (1.5-5.0); LYMPH % 7.2 % (24.0-44.0); MEAN CORPUSCULAR HEMOGLOBIN 27.4 pg (27.0-33.0); MEAN CORPUSCULAR HGB CONC 31.8 g/dl (32.0-36.5); MONO # 1.3 10^3/uL (0.0-0.8); MONO % 6.3 % (2.0-8.0); NEUTROPHILS # 15.7 10^3/uL (1.5-8.5); NEUTROPHILS % 79.7 % (36.0-66.0); PLATELET COUNT, AUTOMATED 456 10^3/uL (150-450); RED BLOOD COUNT 2.85 10^6/uL (4.30-6.10); WHITE BLOOD COUNT 19.7 10^3/uL (4.0-10.0)
[2022-07-22] MEDS ORDERED: FIDAXOMICIN 200 MG TAB (DIFICID) PO SCH (09:00)
[2022-07-22] MEDS: CitaloPRAM (CeleXA) 20 MG TAB PO SCH (09:53)
[2022-07-22] MEDS: ATORVASTATIN 10 MG TAB PO SCH (09:53)
[2022-07-22] MEDS: PANTOPRAZOLE 40MG VIAL IV SCH (09:53)
[2022-07-22] MEDS ORDERED: DIFI200T PO (10:16)
[2022-07-22] MEDS ORDERED: ATIV1TAB10 PO (10:19)
[2022-07-22] MEDS ORDERED: HYOS125TA PO (10:19)
[2022-07-22] MEDS ORDERED: MORP1SOL5 PO (10:19)
[2022-07-22 10:35] LABS: ALBUMIN 1.5 G/DL (3.2-5.2); BILIRUBIN,TOTAL 0.2 MG/DL (0.3-1.2); CALCIUM LEVEL 5.4 MG/DL (8.3-10.6); CREATININE FOR GFR 6.46 MG/DL (0.70-1.30); GLOMERULAR FILTRATION RATE 9.2 (>49); MAGNESIUM LEVEL 1.6 MG/DL (1.8-2.4); POTASSIUM SERUM 3.4 MMOL/L (3.5-5.1); TOTAL PROTEIN 5.2 G/DL (5.7-8.2)
[2022-07-22] MEDS ORDERED: VANC125C3 PO (11:15)
[2022-07-22 14:00] VITALS: BP 147/84
== END 2022-07-22 16:17 | disposition hospice, home (50) | DRG 388 ==
LOC: M ED 22:23 → M ED INP 07-17 00:41 → ENRESERV 07-17 12:26 → M MSPAV 07-17 13:43
PROVIDERS: ADMIT Family Medicine; ATTEND Internal Medicine
DX: K56.609 Unspecified intestinal obstruction, unspecified as to partial versus complete obstruction (principal); J15.6 Pneumonia due to other Gram-negative bacteria; G93.41 Metabolic encephalopathy; J96.01 Acute respiratory failure with hypoxia; N18.4 Chronic kidney disease, stage 4 (severe); N17.9 Acute kidney failure, unspecified; E87.0 Hyperosmolality and hypernatremia; C79.89 Secondary malignant neoplasm of other specified sites; C68.0 Malignant neoplasm of urethra; A04.72 Enterocolitis due to Clostridium difficile, not specified as recurrent; E87.20 Acidosis, unspecified; C79.51 Secondary malignant neoplasm of bone; C78.6 Secondary malignant neoplasm of retroperitoneum and peritoneum; Z51.5 Encounter for palliative care; Z66 Do not resuscitate; I12.9 Hypertensive chronic kidney disease with stage 1 through stage 4 chronic kidney disease, or unspecified chronic kidney disease; E78.5 Hyperlipidemia, unspecified; Z93.6 Other artificial openings of urinary tract status; E83.52 Hypercalcemia; D63.1 Anemia in chronic kidney disease; E87.6 Hypokalemia; E83.42 Hypomagnesemia; R54 Age-related physical debility; R26.89 Other abnormalities of gait and mobility; F32.A Depression, unspecified; Z79.899 Other long term (current) drug therapy